=== PATIENT | female | born 1935 | race Caucasian/White ===

== ENCOUNTER 2017-10-09 12:13 | Emergency (ER) | payer MEDICARE, OTHER ==
--- NOTE | 2017-10-09 12:45 | EDM.PDOC ---
ED HPI GENERAL MEDICAL PROBLEM - General Chief Complaint: Lower Extremity Injury/Pain Time Seen by Provider: 10/09/17 12:26 Source of Information: Reports: Patient, Family () History Limitations: Reports: No Limitations - History of Present Illness INITIAL COMMENTS - FREE TEXT/NARRATIVE: Patient arrived via ambulance shortly after falling in her kitchen. She says she just fell and wasn't feeling dizzy. She does have dizziness that she treats with meclizine. No LOC. Very painful right hip and also right elbow. She was given Dilaudid 0.5mg (x2) in ambulance as well as Versed 0.5mg. History of stroke about 3 years ago and on Plavix. Pt denies history of LA, stents or other cardiac problems except her cholesterol and hypertension. She didn't take her medications this morning and blood pressure is high. Right Hip Pain Score (Numeric/FACES): 6 - Related Data Allergies Allergy/AdvReac Type Severity Reaction Status Date / Time No Known Drug Allergies Allergy Cannot Verified 10/09/17 12:33 Remember Home Meds: Home Meds ALPRAZolam [Xanax] 0.5 mg PO BEDTIME 07/17/14 [History] Atenolol 50 mg PO BID 07/17/14 [History] Hydrochlorothiazide 25 mg PO DAILY 07/17/14 [History] Meclizine HCl 50 mg PO DAILY 07/17/14 [History] Potassium Chloride [Klor-Con 10] 20 meq PO DAILY 07/17/14 [History] Clopidogrel [Plavix] 75 mg PO DAILY 10/09/17 [History] FLUoxetine HCl [Prozac] 20 mg PO DAILY 10/09/17 [History] Levothyroxine [Synthroid] 88 mcg PO ACBREAKFAST 10/09/17 [History] Losartan [Cozaar] 100 mg PO DAILY 10/09/17 [History] atorvaSTATin [Lipitor] 40 mg PO DAILY 10/09/17 [History] Social & Family History - Tobacco Use Smoking Status *Q: Former Smoker Years of Tobacco use: 2 Used Tobacco, but Quit: Yes Month/Year Tobacco Last Used: Jul Second Hand Smoke Exposure: No - Alcohol Use Days Per Week of Alcohol Use: 7 Number of Drinks Per Day: 2 Total Drinks Per Week: 14 - Recreational Drug Use Recreational Drug Use: No Review of Systems - Review of Systems Review Of Systems: See Below Constitutional: Denies: Chills, Diaphoresis, Fever, Weakness Eyes: Denies: Vision Change Ears: Denies: Dizziness, Pain Nose: Denies: Epistaxis Mouth/Throat: Denies: Hoarse Voice, Painful Swallowing Respiratory: Denies: Shortness of Breath, Cough Cardiovascular: Denies: Chest Pain, Syncope GI/Abdominal: Denies: Abdominal Pain, Diarrhea, Vomiting Genitourinary: Denies: Dysuria, Incontinence, Painful Urination Musculoskeletal: Reports: Leg Pain. Denies: Neck Pain, Shoulder Pain, Arm Pain , Back Pain, Hand Pain, Foot Pain Skin: Denies: Cyanosis, Jaundice, Mottled, Pallor, Diaphoresis Neurological: Denies: Confusion, Dizziness, Headache, Numbness, Seizure, Syncope , Trouble Speaking Psychiatric: Denies: Confusion ED EXAM, GENERAL - Physical Exam Exam: See Below Exam Limited By: No Limitations General Appearance: Alert, WD/WN, Mild Distress (due to hip pain) Eye Exam: Bilateral Eye: EOMI, Normal Inspection, PERRL Ears: Normal External Exam, Hearing Grossly Normal Nose: Normal Inspection, No Blood Throat/Mouth: Normal Inspection, Normal Lips, Normal Voice, No Airway Compromise Head: Atraumatic, Normocephalic Neck: Normal Inspection, Supple, Full Range of Motion Respiratory/Chest: No Respiratory Distress, Lungs Clear, Normal Breath Sounds, No Accessory Muscle Use Cardiovascular: Regular Rate, Rhythm, Systolic Murmur GI/Abdominal: Normal Bowel Sounds, Soft, Non-Tender, No Organomegaly, No Distention Back Exam: No: CVA Tenderness (L), CVA Tenderness (R) Extremities: Leg Pain (right leg is moderately shortened and externally rotated with pain at the hip. Other extremities have full pain-free ROM with posterior contusion and hematoma of right elbow but otherwise no evidence of injury. Symmetric dorsiflexion/plantar flexion intact. Distal CMS intact.) Neurological: Alert, Oriented, Normal Cognition, No Motor/Sensory Deficits Psychiatric: Normal Affect, Normal Mood Skin Exam: Warm, Dry, Intact, Normal Color, No Rash Course - Vital Signs Last Recorded V/S: Last Vital Signs Temp 97.7 F 10/09/17 12:28 Pulse 62 10/09/17 13:20 Resp 18 10/09/17 12:28 BP 236/104 H 10/09/17 13:20 Pulse Ox 86 L 10/09/17 12:28 - Orders/Labs/Meds Orders: Active Orders 24 hr Category Date Time Status Chest 1V Frontal [CR] Stat Exams 10/09/17 12:31 Ordered Elbow Min 3V Rt [CR] Stat Exams 10/09/17 12:31 Ordered Hip Min 2V or 3V w Pelvis Rt [CR] Stat Exams 10/09/17 12:31 Ordered Labs: Laboratory Tests 10/09/17 10/09/17 10/09/17 Range/Units 13:05 13:05 13:05 WBC 5.8 (5.0-10.0) 10^3/uL RBC 4.18 (3.80-5.50) 10^6/uL Hgb 12.4 D (12.0-16.0) g/dL Hct 37.9 (37.0-47.0) % MCV 90.6 D (82.0-92.0) fL MCH 29.6 (27.0-31.0) pg MCHC 32.6 (32.0-36.0) g/dL RDW 13.1 (11.5-14.5) % Plt Count 189 (150-300) 10^3/uL MPV 7.1 L (7.4-10.4) fL Neut % (Auto) 73.4 H (50.0-70.0) % Lymph % (Auto) 17.2 L (20.0-40.0) % [place] % (Auto) 6.1 (2.0-8.0) % Eos % (Auto) 2.9 (1.0-3.0) % Baso % (Auto) 0.4 (0.0-1.0) % Neut # (Auto) 4.2 (2.5-7.0) 10^3/uL Lymph # (Auto) 1.0 (1.0-4.0) 10^3/uL [place] # (Auto) 0.4 (0.1-0.8) 10^3/uL Eos # (Auto) 0.2 (0.1-0.3) 10^3/uL Baso # (Auto) 0.0 (0.0-0.1) 10^3/uL PT 9.9 (8.9-11.4) SEC INR 1.0 (0.9-1.1) Sodium 139 (136-145) mmol/L Potassium 3.3 (3.3-5.3) mmol/L Chloride 103 (98-115) mmol/L Carbon Dioxide 25.7 (21.0-32.0) mmol/L BUN 32 H (6-25) mg/dL Creatinine 1.52 H (0.51-1.17) mg/dL Est Cr Clr Drug Dosing 23.35 mL/min Estimated GFR (MDRD) 33 mL/min Glucose 131 H (70-110) mg/dL Calcium 8.7 (8.7-10.3) mg/dL Meds: Medications Discontinued Medications Generic Name Dose Route Start Last Admin Trade Name Freq PRN Reason Stop Dose Admin Hydromorphone HCl 0.5 mg 10/09/17 13:12 10/09/17 13:19 Dilaudid IVPUSH 10/09/17 13:13 0.5 mg ONETIME ONE Administration Labetalol HCl 20 mg 10/09/17 12:51 10/09/17 12:57 Normodyne IVPUSH 10/09/17 12:52 20 mg ONETIME ONE Administration Protocol Labetalol HCl 40 mg 10/09/17 13:15 10/09/17 13:20 Normodyne IVPUSH 10/09/17 13:16 40 mg ONETIME ONE Administration Protocol - Re-Assessments/Exams Free Text/Narrative Re-Assessment/Exam: 10/09/17 13:25 Xrays confirm displaced intertrochanteric right hip fracture. No evidence of pelvic or elbow fracture. Blood pressure is high and we have given a dose of Labetalol 20mg followed by a second dose of 40mg. Discussed findings with patient and her . They wish to go to [facility] in [place]. Discussed case with Srikanth Cannon PA-C who accepted, on behalf of Dr. Guthrie (ortho), for transfer and treatment. Patient's pain level has improved some with the two doses of Dilaudid 0.5 mg given en route and wants another dose. Another dose of Dilaudid 0.5 mg is given just prior to departure in ambulance. Patient has been stable throughout ER course. Departure - Departure Time of Disposition: 13:24 Disposition: DC/Tfer to Acute Hospital 02 Condition: Good Clinical Impression: Elevated blood pressure reading in office with diagnosis of hypertension Intertrochanteric fracture of right hip Qualifiers: Encounter type: initial encounter Fracture type: closed Fracture alignment: displaced Qualified Code(s): S72.141A - Displaced intertrochanteric fracture of right femur, initial encounter for closed fracture Contusion of right elbow Qualifiers: Encounter type: initial encounter Qualified Code(s): S50.01XA - Contusion of right elbow, initial encounter - Discharge Information Referrals: Cristian Milton MD [Primary Care Provider] - Forms: ED Department Discharge - My Orders Last 24 Hours: My Active Orders 10/09/17 12:31 Chest 1V Frontal [CR] Stat Elbow Min 3V Rt [CR] Stat Hip Min 2V or 3V w Pelvis Rt [CR] Stat - Assessment/Plan Last 24 Hours: My Active Orders 10/09/17 12:31 Chest 1V Frontal [CR] Stat Elbow Min 3V Rt [CR] Stat Hip Min 2V or 3V w Pelvis Rt [CR] Stat
[2017-10-09] MEDS ORDERED: Labetalol 100 MG/20 ML MDV IVPUSH ONE ×2 (12:51→13:15)
[2017-10-09] MEDS ORDERED: HYDROmorphone 1 MG/ML Syringe IVPUSH ONE (13:12)
[2017-10-09 13:29] VITALS: BP 236/104
== END 2017-10-09 13:30 ==
LOC: KA.ED 12:13
DX: S72.141A Displaced intertrochanteric fracture of right femur, initial encounter for closed fracture (principal); S50.01XA Contusion of right elbow, initial encounter; I10 Essential (primary) hypertension; E78.00 Pure hypercholesterolemia, unspecified; Z79.899 Other long term (current) drug therapy; Z87.891 Personal history of nicotine dependence; W19.XXXA Unspecified fall, initial encounter; Y92.000 Kitchen of unspecified non-institutional (private) residence as the place of occurrence of the external cause
CPT/HCPCS: 36415; 71045; 73080-RT; 80048; 85025; 85610; 96374; 96375; 99285; J1170

== ENCOUNTER 2017-10-13 09:40 | Inpatient (IN) | payer MEDICARE, OTHER ==
[2017-10-13] MEDS ORDERED: Ondansetron 4 MG Tab.DIS PO PRN (16:01)
[2017-10-13] MEDS ORDERED: Meclizine 25 MG Tab PO PRN (16:02)
[2017-10-13] MEDS: hydrALAZINE 50 MG Tab PO SCH (17:48)
[2017-10-13] MEDS: Apixaban 5 MG Tab PO SCH (21:01)
[2017-10-13] MEDS: ALPRAZolam 0.25 MG Tab PO PRN (21:04)
[2017-10-13] MEDS: Atenolol 25 MG Tab PO SCH (21:05)
[2017-10-13] MEDS ORDERED: FLUoxetine 20 MG Cap PO SCH (21:15)
[2017-10-13] MEDS: FLUoxetine 10 MG Cap PO SCH (22:23)
[2017-10-14] MEDS: Levothyroxine 88 MCG Tab PO SCH (08:32)
[2017-10-14] MEDS: hydrALAZINE 50 MG Tab PO SCH ×3 (08:33→17:56)
[2017-10-14] MEDS: atorvaSTATin 40 MG Tab PO SCH (08:33)
[2017-10-14] MEDS: amLODIPine 5 MG Tab PO SCH (08:34)
[2017-10-14] MEDS: Atenolol 25 MG Tab PO SCH ×2 (08:35→20:50)
[2017-10-14] MEDS: FLUoxetine 10 MG Cap PO SCH (08:39)
[2017-10-14] MEDS: Apixaban 5 MG Tab PO SCH ×2 (08:57→20:49)
[2017-10-14] MEDS ORDERED: Clopidogrel 75 MG Tab PO SCH (09:00)
--- NOTE | 2017-10-14 10:25 | PCM.HP ---
H&P History of Present Illness - General Date of Service: 10/14/17 Admit Problem/Dx: Admission Diagnosis/Problem Admission Diagnosis/Problem Hip fracture requiring operative repair Source of Information: Patient, Old Records, RN - History of Present Illness Initial Comments - Free Text/Narative: 82-year-old female who sustained a right hip fracture after subsequent fall at home was admitted and discussed long term care for physical therapy and rehabilitation. She was sent to us from [place], [place]. Right Hip Pain Score (Numeric/FACES): 6 - Related Data Allergies/Adverse Reactions: Allergies Allergy/AdvReac Type Severity Reaction Status Date / Time No Known Drug Allergies Allergy Cannot Verified 10/09/17 12:33 Remember Home Medications: Home Meds Atenolol 50 mg PO BID 07/17/14 [History] Meclizine HCl 25 mg PO BID PRN 07/17/14 [History] Clopidogrel [Plavix] 75 mg PO DAILY 10/09/17 [History] Levothyroxine [Synthroid] 88 mcg PO ACBREAKFAST 10/09/17 [History] atorvaSTATin [Lipitor] 40 mg PO DAILY 10/09/17 [History] ALPRAZolam [Xanax] 0.5 mg PO 2100 PRN 10/13/17 [History] Acetaminophen [Acetaminophen Extra Strength] 1,000 mg PO TID PRN 10/13/17 [ History] Apixaban [Eliquis] 2.5 mg PO BID 10/13/17 [History] FLUoxetine HCl [Prozac] 20 mg PO DAILY 10/13/17 [History] amLODIPine Besylate [Amlodipine Besylate] 5 mg PO DAILY 10/13/17 [History] hydrALAZINE [Apresoline] 100 mg PO TIDMEALS 10/13/17 [History] oxyCODONE 5 mg PO Q4H PRN 10/13/17 [History] Past Medical History HEENT History: Reports: Hard of Hearing Cardiovascular History: Reports: Heart Murmur, Hypertension Gastrointestinal History: Reports: Chronic Constipation, Hemorrhoids BENDING ROLL HAND History: Reports: , Spontaneous Other OB/BYN History: tubal ligation, hysterectomy Musculoskeletal History: Reports: Fracture, Osteoarthritis Other Musculoskeletal History: ankle fx; bilateral knee replacements; broken right hip Neurological History: Reports: CVA, Vertigo Psychiatric History: Reports: Anxiety Other Psychiatric History: forgetfulness Endocrine/Metabolic History: Reports: Hypothyroidism, Osteopenia Hematologic History: Reports: None - Infectious Disease History Infectious Disease History: Reports: Chicken Pox, Influenza, Measles, Mumps - Past Surgical History Other HEENT Surgeries/Procedures: menieres syndrome Musculoskeletal Surgical History: Reports: Knee Replacement, ORIF Social & Family History - Family History HEENT: Reports: None Cardiac: Reports: Heart Failure, Other (See Below) (Mother heart disease, also brother with heart disease) Respiratory: Reports: None GI: Reports: None : Reports: None OBGYN: Reports: None Musculoskeletal: Reports: None Psychiatric: Reports: None Endocrine/Metabolic: Reports: Diabetes, type II (Paternal grandmother diabetes paternal grandfather heart disease,) Hematologic: Reports: None Immunologic: Reports: None Dermatologic: Reports: None Oncologic: Reports: None - Tobacco Use Smoking Status *Q: Former Smoker Years of Tobacco use: 3 Packs/Tins Daily: 0.5 Used Tobacco, but Quit: Yes Month/Year Tobacco Last Used: JUL Tobacco Use Comment: Quit yrs ago Second Hand Smoke Exposure: No - Caffeine Use Caffeine Use: Reports: Coffee, Soda, Tea - Alcohol Use Days Per Week of Alcohol Use: 3 Number of Drinks Per Day: 2 Total Drinks Per Week: 6 Date of Last Drink: 10/06/17 - Recreational Drug Use Recreational Drug Use: No H&P Review of Systems - Review of Systems: Review Of Systems: See Below General: Reports: Weakness. Denies: Night Sweats, Decreased Appetite, Weight Gain HEENT: Reports: No Symptoms Pulmonary: Reports: No Symptoms Cardiovascular: Reports: No Symptoms Gastrointestinal: Reports: Constipation Genitourinary: Reports: No Symptoms Musculoskeletal: Reports: Leg Pain (Right hip pain), Joint Swelling (Right elbow since fall). Denies: Shoulder Pain, Foot Pain Skin: Reports: Bruising (Significant bruising right elbow, surgical site bruising, slight blood oozing through katherin), Erythema, Wound (Katherin intact) . Denies: Rash Psychiatric: Reports: No Symptoms Neurological: Reports: Difficulty Walking. Denies: Seizure, Syncope, Tingling Hematologic/Lymphatic: Reports: Easy Bleeding, Easy Bruising (Had been on ASA and Plavix now on Eliquis postoperatively) Exam - Exam Exam: See Below - Vital Signs Vital Signs: Last Vital Signs Temp 98.0 F 10/14/17 07:00 Pulse 68 10/14/17 08:35 Resp 18 10/14/17 07:00 BP 168/79 H 10/14/17 08:35 Pulse Ox 95 10/14/17 07:45 Weight: 154 lb 14.4 oz - Exam Quality Assessment: DVT Prophylaxis (Factor X A inhibitor) General: Alert, Oriented, 4 HEENT: Conjunctiva Clear, EACs Clear, EOMI, Hearing Intact, Mucosa Moist & [place] , Nares Patent (Epistaxis lightly this morning now stopped), Normal Nasal Septum , Posterior Pharynx Clear, TMs Clear, PERRLA Neck: Supple, Trachea Midline, 2 Lungs: Clear to Auscultation, Normal Respiratory Effort Cardiovascular: Regular Rate, Regular Rhythm, Systolic Murmur (Significant murmur 10/09) GI/Abdominal Exam: Soft. No: Distended Back Exam: No: CVA Tenderness (L), CVA Tenderness (R) Extremities: No Pedal Edema Skin: Wound, Incision (Some oozing blood from surgical site) Neurological: Cranial Nerves Intact, Strength Equal Bilateral, Normal Speech Neuro Extensive - Mental Status: Alert, Oriented x3, Normal Mood/Affect, Normal Cognition Neuro Extensive - Motor, Sensory, Reflexes: CN II-XII Intact, Normal Gait, Normal Reflexes Psychiatric: Alert, Normal Affect, Normal Mood - Patient Data Lab Results Last 24 hrs: Laboratory Results - last 24 hr 10/14/17 Range/Units 07:30 Sodium 141 (136-145) mmol/L Potassium 3.7 (3.3-5.3) mmol/L Chloride 106 (98-115) mmol/L Carbon Dioxide 23.1 (21.0-32.0) mmol/L BUN 59 H* D (6-25) mg/dL Creatinine 2.26 H (0.51-1.17) mg/dL Est Cr Clr Drug Dosing 14.26 mL/min Estimated GFR (MDRD) 21 mL/min Glucose 108 (70-110) mg/dL Calcium 8.3 L (8.7-10.3) mg/dL Result Diagrams: 10/18/17 06:23 10/18/17 06:23 Problem List Initiated/Reviewed/Updated: Yes Orders Last 24hrs: Active Orders 24 hr Category Date Time Status Patient Status [ADT] Routine ADT 10/13/17 11:28 Ordered Blood Glucose Check, Bedside [RC] QIDACANDBED Care 10/13/17 11:28 Inactive Communication Order [RC] DAILY Care 10/13/17 11:53 Active Communication Order [RC] DAILY Care 10/13/17 12:05 Active Communication Order [RC] DAILY Care 10/13/17 12:13 Active Dressing Change [Wound Care] [RC] DAILY Care 10/13/17 11:58 Active Intake and Output [RC] Q8HR Care 10/13/17 11:28 Active RT Incentive Spirometry [RC] .PRN Care 10/13/17 12:12 Active Up With Assistance [RC] DAILY Care 10/13/17 11:28 Active Up to Chair [RC] DAILY Care 10/13/17 11:28 Active Consult to [employer] Supervisor [CONS] Routine Cons 10/13/17 11:28 Active PT Evaluation and Treatment [CONS] Routine Cons 10/13/17 11:28 Active Cardiac [Heart Healthy Diet] [DIET] Diet 10/13/17 Dinner Active ALPRAZolam [Xanax] Med 10/13/17 20:40 Active 0.5 mg PO BEDTIME PRN Acetaminophen [Tylenol Extra Strength] Med 10/13/17 16:02 Active 1,000 mg PO TID PRN Apixaban [Eliquis] Med 10/13/17 21:00 Active 2.5 mg PO BID Atenolol [Tenormin] Med 10/13/17 21:00 Active 50 mg PO BID Clopidogrel [Plavix] Med 10/14/17 09:00 Active 75 mg PO DAILY FLUoxetine [PROzac] Med 10/13/17 21:30 Active 20 mg PO DAILY Levothyroxine [Synthroid] Med 10/14/17 07:30 Active 88 mcg PO ACBREAKFAST Meclizine [Antivert] Med 10/13/17 16:02 Active 25 mg PO BID PRN Ondansetron [Zofran ODT] Med 10/13/17 16:01 Active 4 mg PO Q6H PRN amLODIPine [Norvasc] Med 10/14/17 09:00 Active 5 mg PO DAILY atorvaSTATin [Lipitor] Med 10/14/17 09:00 Active 40 mg PO DAILY hydrALAZINE [Apresoline] Med 10/13/17 18:00 Active 100 mg PO TIDMEALS oxyCODONE Med 10/13/17 16:02 Active 5 mg PO Q4H PRN Ice Therapy [OM.PC] Routine Oth 10/13/17 11:52 Ordered TENISHA Hose [Antiembolic Hose] [OM.PC] Routine Oth 10/13/17 11:48 Ordered Resuscitation Status Routine Resus Stat 10/13/17 11:28 Ordered Medication Orders Acetaminophen (Tylenol Extra Strength) 1,000 mg PO TID PRN PRN Reason: Pain Alprazolam (Xanax) 0.5 mg PO BEDTIME PRN PRN Reason: ANXIETY Last Admin: 10/13/17 21:04 Dose: 0.5 mg Amlodipine Besylate (Norvasc) 5 mg PO DAILY [facility] Last Admin: 10/14/17 08:34 Dose: 5 mg Apixaban (Eliquis) 2.5 mg PO BID [facility] Stop: 10/23/17 21:01 Last Admin: 10/14/17 08:57 Dose: 2.5 mg Admin: 10/13/17 21:01 Dose: 2.5 mg Atenolol (Tenormin) 50 mg PO BID [facility] Last Admin: 10/14/17 08:35 Dose: 50 mg Admin: 10/13/17 21:05 Dose: 50 mg Atorvastatin Calcium (Lipitor) 40 mg PO DAILY [facility] Last Admin: 10/14/17 08:33 Dose: 40 mg Clopidogrel Bisulfate (Plavix) 75 mg PO DAILY [facility] Last Admin: 10/14/17 10:08 Dose: Fluoxetine HCl (Prozac) 20 mg PO DAILY [facility] Last Admin: 10/14/17 08:39 Dose: 20 mg Admin: 10/13/17 22:23 Dose: 20 mg Hydralazine HCl (Apresoline) 100 mg PO TIDMEALS [facility] Last Admin: 10/14/17 08:33 Dose: 100 mg Admin: 10/13/17 17:48 Dose: 100 mg Levothyroxine Sodium (Synthroid) 88 mcg PO ACBREAKFAST [facility] Last Admin: 10/14/17 08:32 Dose: 88 mcg Meclizine HCl (Antivert) 25 mg PO BID PRN PRN Reason: Dizziness Ondansetron HCl (Zofran Odt) 4 mg PO Q6H PRN PRN Reason: Nausea/Vomiting Last Admin: 10/13/17 16:51 Dose: 4 mg Oxycodone HCl (Oxycodone) 5 mg PO Q4H PRN PRN Reason: Pain (severe 7-10) Assessment/Plan Comment:: HISTORY OF PRESENT ILLNESS 82-year-old female who sustained a right hip fracture after subsequent fall at home was admitted and discussed long term care for physical therapy and rehabilitation. She was sent to us from [facility]. Principal problem Status post closed right hip fracture, PTOT Anemia, blood loss, hemoglobin October 09 9.1, reassess Constipation, add senna S DVT , stop aspirin and Plavix, however will continue with Eliquis although slight oozing from the wound and epistaxis seems controlled will continue to monitor. Risks versus benefit. 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 For gait assistive devices, FWW CODE STATUS, full code Delirium prophylaxis, limit benzodiazepine, Rozerem and ear plugs
[2017-10-14] MEDS: ALPRAZolam 0.25 MG Tab PO PRN (20:56)
[2017-10-15] MEDS: Levothyroxine 88 MCG Tab PO SCH (07:47)
[2017-10-15] MEDS: Atenolol 25 MG Tab PO SCH ×2 (08:11→20:00)
[2017-10-15] MEDS: atorvaSTATin 40 MG Tab PO SCH (08:12)
[2017-10-15] MEDS: FLUoxetine 10 MG Cap PO SCH (08:12)
[2017-10-15] MEDS: amLODIPine 5 MG Tab PO SCH (08:12)
[2017-10-15] MEDS: Apixaban 5 MG Tab PO SCH ×2 (08:13→20:00)
[2017-10-15] MEDS: hydrALAZINE 50 MG Tab PO SCH ×3 (08:13→18:26)
[2017-10-15] MEDS: oxyCODONE 5 MG Tab PO PRN (08:22)
[2017-10-15] MEDS: ALPRAZolam 0.25 MG Tab PO SCH (20:02)
[2017-10-16] MEDS: oxyCODONE 5 MG Tab PO PRN ×2 (04:07→08:49)
[2017-10-16] MEDS: atorvaSTATin 40 MG Tab PO SCH (08:08)
[2017-10-16] MEDS: Levothyroxine 88 MCG Tab PO SCH (08:08)
[2017-10-16] MEDS: Atenolol 25 MG Tab PO SCH ×2 (08:09→21:14)
[2017-10-16] MEDS: FLUoxetine 10 MG Cap PO SCH (08:09)
[2017-10-16] MEDS: amLODIPine 5 MG Tab PO SCH (08:10)
[2017-10-16] MEDS: hydrALAZINE 50 MG Tab PO SCH ×3 (08:11→18:51)
[2017-10-16] MEDS: Apixaban 5 MG Tab PO SCH ×2 (08:13→21:16)
[2017-10-16] MEDS: ALPRAZolam 0.25 MG Tab PO SCH (21:21)
[2017-10-17] MEDS: Levothyroxine 88 MCG Tab PO SCH (06:43)
[2017-10-17] MEDS: atorvaSTATin 40 MG Tab PO SCH (08:19)
[2017-10-17] MEDS: hydrALAZINE 50 MG Tab PO SCH ×3 (08:20→18:37)
[2017-10-17] MEDS: FLUoxetine 10 MG Cap PO SCH (08:20)
[2017-10-17] MEDS: amLODIPine 5 MG Tab PO SCH (08:20)
[2017-10-17] MEDS: Apixaban 5 MG Tab PO SCH ×2 (08:20→20:40)
[2017-10-17] MEDS: Atenolol 25 MG Tab PO SCH ×2 (08:21→20:43)
--- NOTE | 2017-10-17 12:03 | PCM.PN ---
- General Info Date of Service: 10/17/17 Subjective Update: Ms. Boykin reports no new concerns today. Pain managed with current medication regimen, but aggravated by activity. Requiring quite a bit of encouragement to get up to chair and ambulation. Tolerating diet well, but poor appetite. Voiding well. BMs soft, but becoming a little more firm since requiring enema during acute hospitalization. - Patient Data Vitals - Most Recent: Last Vital Signs Temp 37.4 C 10/17/17 06:11 Pulse 76 10/17/17 08:21 Resp 18 10/17/17 06:11 BP 127/74 10/17/17 08:21 Pulse Ox 95 10/17/17 06:11 Weight - Most Recent: 70.261 kg I&O - Last 24 Hours: Intake & Output 10/16/17 10/17/17 10/17/17 22:59 06:59 14:59 Intake Total 120 100 Output Total 600 0 Balance -480 100 Lab Results Last 24 Hours: Laboratory Results - last 24 hr 10/17/17 10/17/17 Range/Units 07:10 07:10 WBC 7.6 (5.0-10.0) 10^3/uL RBC 2.77 L (3.80-5.50) 10^6/uL Hgb 8.3 L (12.0-16.0) g/dL Hct 25.5 L (37.0-47.0) % MCV 92.0 (82.0-92.0) fL MCH 29.9 (27.0-31.0) pg MCHC 32.5 (32.0-36.0) g/dL RDW 13.9 (11.5-14.5) % Plt Count 307 H (150-300) 10^3/uL MPV 6.5 L (7.4-10.4) fL Neut % (Auto) 73.2 H (50.0-70.0) % Lymph % (Auto) 12.9 L (20.0-40.0) % [place] % (Auto) 10.2 H (2.0-8.0) % Eos % (Auto) 3.1 H (1.0-3.0) % Baso % (Auto) 0.6 (0.0-1.0) % Neut # (Auto) 5.6 (2.5-7.0) 10^3/uL Lymph # (Auto) 1.0 (1.0-4.0) 10^3/uL [place] # (Auto) 0.8 (0.1-0.8) 10^3/uL Eos # (Auto) 0.2 (0.1-0.3) 10^3/uL Baso # (Auto) 0.0 (0.0-0.1) 10^3/uL Sodium 134 L (136-145) mmol/L Potassium 3.5 (3.3-5.3) mmol/L Chloride 101 (98-115) mmol/L Carbon Dioxide 24.0 (21.0-32.0) mmol/L BUN 53 H* (6-25) mg/dL Creatinine 1.93 H (0.51-1.17) mg/dL Est Cr Clr Drug Dosing 16.70 mL/min Estimated GFR (MDRD) 25 mL/min Glucose 114 H (70-110) mg/dL Calcium 8.4 L (8.7-10.3) mg/dL Total Bilirubin 0.9 (0.2-1.0) mg/dL AST 21 (15-37) U/L ALT 11 L (12-78) U/L Alkaline Phosphatase 61 (46-116) IU/L Total Protein 6.1 L (6.4-8.2) g/dL Albumin 2.55 L (3.00-4.80) g/dL [place] Results Last 24 Hours: Microbiology 10/15/17 17:15 Gram Stain - Final Wound - Hip, Right 10/15/17 17:15 Gram Stain - Final Wound - Leg, Right Med Orders - Current: Current Medications Acetaminophen (Tylenol Extra Strength) 1,000 mg PO TID PRN PRN Reason: Pain Alprazolam (Xanax) 0.5 mg PO BEDTIME ON LICENSE OF [facility] Last Admin: 10/16/17 21:21 Dose: 0.5 mg Amlodipine Besylate (Norvasc) 5 mg PO DAILY ON LICENSE OF [facility] Last Admin: 10/17/17 08:20 Dose: 5 mg Apixaban (Eliquis) 2.5 mg PO BID ON LICENSE OF [facility] Stop: 10/23/17 21:01 Last Admin: 10/17/17 08:20 Dose: 2.5 mg Atenolol (Tenormin) 50 mg PO BID ON LICENSE OF [facility] Last Admin: 10/17/17 08:21 Dose: 50 mg Atorvastatin Calcium (Lipitor) 40 mg PO DAILY ON LICENSE OF [facility] Last Admin: 10/17/17 08:19 Dose: 40 mg Calcium Citrate (Calcium Citrate + D) 2 tab PO BID ON LICENSE OF [facility] Clopidogrel Bisulfate (Plavix) 75 mg PO DAILY ON LICENSE OF [facility] Ferrous Sulfate (Ferrous Sulfate) 325 mg PO WITHBREAKFAST ON LICENSE OF [facility] Fluoxetine HCl (Prozac) 20 mg PO DAILY ON LICENSE OF [facility] Last Admin: 10/17/17 08:20 Dose: 20 mg Hydralazine HCl (Apresoline) 100 mg PO TIDMEALS ON LICENSE OF [facility] Last Admin: 10/17/17 08:20 Dose: 100 mg Levothyroxine Sodium (Synthroid) 88 mcg PO ACBREAKFAST ON LICENSE OF [facility] Last Admin: 10/17/17 06:43 Dose: 88 mcg Meclizine HCl (Antivert) 25 mg PO BID PRN PRN Reason: Dizziness Ondansetron HCl (Zofran Odt) 4 mg PO Q6H PRN PRN Reason: Nausea/Vomiting Last Admin: 10/13/17 16:51 Dose: 4 mg Oxycodone HCl (Oxycodone) 5 mg PO Q4H PRN PRN Reason: Pain (severe 7-10) Last Admin: 10/16/17 08:49 Dose: 5 mg Ramelteon (Rozerem) 8 mg PO BEDTIME PRN PRN Reason: Delirium prophylaxis Senna/Docusate Sodium (Senna Plus) 1 tab PO BEDTIME ON LICENSE OF [facility] Last Admin: 10/16/17 21:15 Dose: 1 tab Discontinued Medications Alprazolam (Xanax) 0.5 mg PO BEDTIME PRN PRN Reason: ANXIETY Last Admin: 10/14/17 20:56 Dose: 0.5 mg Clopidogrel Bisulfate (Plavix) 75 mg PO DAILY ON LICENSE OF [facility] Last Admin: 10/14/17 10:08 Dose: Not Given Fluoxetine HCl (Prozac) 20 mg PO DAILY ON LICENSE OF [facility] Last Admin: 10/14/17 01:13 Dose: Not Given - Exam Physical Findings Comments:: GENERAL: Well-appearing elderly female sitting in bedside chair in no acute distress. HEENT: Normocephalic, atraumatic. Conjunctiva clear. Nares patent without discharge. Mucous membranes moist. NECK: Supple, no masses. CV: Regular rate and rhythm. 2+ radial and pedal pulses. PULMONARY: Normal effort. ABDOMEN: Soft, nontender, nondistended. EXTREMITIES/MSK/DERMATOLOGIC: R lateral hip and thigh with dressing in place without surrounding erythema. R elbow with extensive ecchymosis. NEUROLOGICAL: No obvious deficits. DERMATOLOGIC: No rashes or suspicious lesions in exposed areas. PSYCHIATRIC: Alert, interactive, appropriate affect. - Problem List Review Problem List Initiated/Reviewed/Updated: Yes - My Orders Last 24 Hours: My Active Orders 10/17/17 21:00 Calcium Citrate/Vitamin D3 [Calcium Citrate + D] 2 tab PO BID 10/18/17 05:11 BASIC METABOLIC PANEL,BMP [CHEM] AM CBC WITH AUTO DIFF [HEME] AM 10/18/17 08:00 Ferrous Sulfate 325 mg PO WITHBREAKFAST 10/24/17 09:00 Clopidogrel [Plavix] 75 mg PO DAILY - Plan Plan:: HPI Summary: 82-year-old female who sustained a right hip fracture after subsequent fall at home was admitted and discussed fdc care for physical therapy and rehabilitation. [facility] Principal problems: # Debility # Status post closed right hip fragility fracture # Osteopenia: Last DEXA 2012. # Anemia, blood loss # Acute kidney injury superimposed on CKD, stage 3: Baseline Cr 1.5. # Constipation Ongoing debility and need for rehabilitation. Further mild decrease in H/H, but no ongoing evidence of bleeding since resolution of wound oozing and epistaxis with holding of Plavix and ASA while on Eliquis. Improving YAIR. - Continue PT - Continue oxycodone and Tylenol for pain - Continue Eliquis for DVT ppx - Start Fe supplementation - Start Ca/D supplementation - Continue Senna and Miralax for constipation - Continue delirium ppx with ramelteon and ear plugs - Recheck CBC and BMP in 3 days - Plan for outpatient initiation of Forteo in the setting of fragility fracture Chronic, stable problems: # History of CVA, 2013: Holding Plavix until completed with factor Xa inhibitor. # Carotid artery stenosis # HTN: Amlodipine, atenolol, hydralazine. # Hypothyroidism: Levothyroxine. # HLD: Statin. # Anxiety: Fluoxetine, alprazolam. # Chronic vertigo: Meclizine prn. Hospitalization details: # Code status: FULL. # Emergency contact: . # Disposition: Continue on swing bed status. Anticipate discharge to home when ambulatory status improves.
[2017-10-17] MEDS ORDERED: Polyethylene Glycol 3350 Powder 17 GM Packet PO PRN (12:11)
[2017-10-17] MEDS: Calcium Citrate/Vitamin D3 315 MG-250 Unit Tab PO SCH (20:40)
[2017-10-17] MEDS: ALPRAZolam 0.25 MG Tab PO SCH (20:41)
[2017-10-18] MEDS: Levothyroxine 88 MCG Tab PO SCH (07:50)
[2017-10-18] MEDS: hydrALAZINE 50 MG Tab PO SCH ×3 (07:50→18:35)
[2017-10-18] MEDS: Ferrous Sulfate 325 MG Tab PO SCH (07:54)
[2017-10-18] MEDS: Calcium Citrate/Vitamin D3 315 MG-250 Unit Tab PO SCH ×2 (08:00→21:35)
[2017-10-18] MEDS: atorvaSTATin 40 MG Tab PO SCH (08:01)
[2017-10-18] MEDS: amLODIPine 5 MG Tab PO SCH (08:01)
[2017-10-18] MEDS: FLUoxetine 10 MG Cap PO SCH (08:01)
[2017-10-18] MEDS: Apixaban 5 MG Tab PO SCH ×2 (08:01→21:28)
[2017-10-18] MEDS: Atenolol 25 MG Tab PO SCH ×2 (08:08→21:29)
[2017-10-18] MEDS: ALPRAZolam 0.25 MG Tab PO SCH (21:29)
[2017-10-19] MEDS: Levothyroxine 88 MCG Tab PO SCH (07:43)
[2017-10-19] MEDS: Calcium Citrate/Vitamin D3 315 MG-250 Unit Tab PO SCH ×2 (08:22→20:41)
[2017-10-19] MEDS: Atenolol 25 MG Tab PO SCH ×2 (08:23→20:41)
[2017-10-19] MEDS: hydrALAZINE 50 MG Tab PO SCH ×3 (08:23→17:47)
[2017-10-19] MEDS: Ferrous Sulfate 325 MG Tab PO SCH (08:23)
[2017-10-19] MEDS: FLUoxetine 10 MG Cap PO SCH (08:23)
[2017-10-19] MEDS: amLODIPine 5 MG Tab PO SCH (08:23)
[2017-10-19] MEDS: oxyCODONE 5 MG Tab PO PRN (08:24)
[2017-10-19] MEDS: atorvaSTATin 40 MG Tab PO SCH (08:24)
[2017-10-19] MEDS: Apixaban 5 MG Tab PO SCH ×2 (08:24→20:41)
[2017-10-19] MEDS: ALPRAZolam 0.25 MG Tab PO SCH (20:42)
[2017-10-20] MEDS: Levothyroxine 88 MCG Tab PO SCH (07:30)
[2017-10-20] MEDS: hydrALAZINE 50 MG Tab PO SCH ×3 (07:30→17:54)
[2017-10-20] MEDS: Ferrous Sulfate 325 MG Tab PO SCH (08:08)
[2017-10-20] MEDS: Apixaban 5 MG Tab PO SCH ×2 (08:08→20:46)
[2017-10-20] MEDS: atorvaSTATin 40 MG Tab PO SCH (08:09)
[2017-10-20] MEDS: amLODIPine 5 MG Tab PO SCH (08:09)
[2017-10-20] MEDS: FLUoxetine 10 MG Cap PO SCH (08:09)
[2017-10-20] MEDS: Atenolol 25 MG Tab PO SCH ×2 (08:10→20:48)
[2017-10-20] MEDS: Calcium Citrate/Vitamin D3 315 MG-250 Unit Tab PO SCH ×2 (08:35→20:46)
[2017-10-20] MEDS: oxyCODONE 5 MG Tab PO PRN (09:40)
[2017-10-20] MEDS: ALPRAZolam 0.25 MG Tab PO SCH (20:47)
[2017-10-21] MEDS: Levothyroxine 88 MCG Tab PO SCH (07:40)
[2017-10-21] MEDS: oxyCODONE 5 MG Tab PO PRN (08:35)
[2017-10-21] MEDS: Atenolol 25 MG Tab PO SCH ×2 (08:36→20:59)
[2017-10-21] MEDS: amLODIPine 5 MG Tab PO SCH (08:37)
[2017-10-21] MEDS: FLUoxetine 10 MG Cap PO SCH (08:37)
[2017-10-21] MEDS: atorvaSTATin 40 MG Tab PO SCH (08:38)
[2017-10-21] MEDS: Apixaban 5 MG Tab PO SCH ×2 (08:38→20:58)
[2017-10-21] MEDS: Ferrous Sulfate 325 MG Tab PO SCH (08:38)
[2017-10-21] MEDS: Calcium Citrate/Vitamin D3 315 MG-250 Unit Tab PO SCH ×2 (08:38→20:58)
[2017-10-21] MEDS: hydrALAZINE 50 MG Tab PO SCH ×3 (08:38→18:18)
[2017-10-21] MEDS: ALPRAZolam 0.25 MG Tab PO SCH (20:59)
[2017-10-22] MEDS: Levothyroxine 88 MCG Tab PO SCH (07:28)
[2017-10-22] MEDS: oxyCODONE 5 MG Tab PO PRN (08:29)
[2017-10-22] MEDS: FLUoxetine 10 MG Cap PO SCH (08:29)
[2017-10-22] MEDS: Apixaban 5 MG Tab PO SCH ×2 (08:31→20:06)
[2017-10-22] MEDS: Ferrous Sulfate 325 MG Tab PO SCH (08:31)
[2017-10-22] MEDS: Atenolol 25 MG Tab PO SCH ×2 (08:32→20:07)
[2017-10-22] MEDS: Calcium Citrate/Vitamin D3 315 MG-250 Unit Tab PO SCH ×2 (08:32→20:06)
[2017-10-22] MEDS: hydrALAZINE 50 MG Tab PO SCH ×3 (08:34→18:46)
[2017-10-22] MEDS: atorvaSTATin 40 MG Tab PO SCH (08:35)
[2017-10-22] MEDS: amLODIPine 5 MG Tab PO SCH (08:36)
[2017-10-22] MEDS: Losartan 50 MG Tab PO SCH (08:41)
[2017-10-22] MEDS: ALPRAZolam 0.25 MG Tab PO SCH (20:12)
[2017-10-23] MEDS: Levothyroxine 88 MCG Tab PO SCH (07:42)
[2017-10-23] MEDS: Ferrous Sulfate 325 MG Tab PO SCH (08:41)
[2017-10-23] MEDS: FLUoxetine 10 MG Cap PO SCH (08:42)
[2017-10-23] MEDS: Calcium Citrate/Vitamin D3 315 MG-250 Unit Tab PO SCH ×2 (08:42→21:29)
[2017-10-23] MEDS: Atenolol 25 MG Tab PO SCH ×2 (08:43→21:32)
[2017-10-23] MEDS: Apixaban 5 MG Tab PO SCH ×2 (08:44→21:30)
[2017-10-23] MEDS: amLODIPine 5 MG Tab PO SCH (08:45)
[2017-10-23] MEDS: atorvaSTATin 40 MG Tab PO SCH (08:46)
[2017-10-23] MEDS: Losartan 50 MG Tab PO SCH (08:46)
[2017-10-23] MEDS: oxyCODONE 5 MG Tab PO PRN (08:59)
--- NOTE | 2017-10-23 09:52 | PCM.PN ---
- General Info Date of Service: 10/23/17 Subjective Update: Ms. Boykin reports no concerns today. Progressing with physical therapy. Pain managed with current medication regimen. Appetite improving. Stooling and voiding well. No nursing concerns. - Patient Data Vitals - Most Recent: Last Vital Signs Temp 36.6 C 10/23/17 06:15 Pulse 62 10/23/17 08:43 Resp 14 10/23/17 06:15 BP 150/83 H 10/23/17 08:46 Pulse Ox 96 10/23/17 08:20 Weight - Most Recent: 70.76 kg I&O - Last 24 Hours: Intake & Output 10/22/17 10/23/17 10/23/17 22:59 06:59 14:59 Intake Total 200 0 Balance 200 0 Med Orders - Current: Current Medications Acetaminophen (Tylenol Extra Strength) 1,000 mg PO TID PRN PRN Reason: Pain Alprazolam (Xanax) 0.5 mg PO BEDTIME [facility] Last Admin: 10/22/17 20:12 Dose: 0.5 mg Amlodipine Besylate (Norvasc) 5 mg PO DAILY [facility] Last Admin: 10/23/17 08:45 Dose: 5 mg Apixaban (Eliquis) 2.5 mg PO BID [facility] Stop: 10/23/17 21:01 Last Admin: 10/23/17 08:44 Dose: 2.5 mg Atenolol (Tenormin) 50 mg PO BID [facility] Last Admin: 10/23/17 08:43 Dose: 50 mg Atorvastatin Calcium (Lipitor) 40 mg PO DAILY [facility] Last Admin: 10/23/17 08:46 Dose: 40 mg Calcium Citrate (Calcium Citrate + D) 2 tab PO BID [facility] Last Admin: 10/23/17 08:42 Dose: 2 tab Clopidogrel Bisulfate (Plavix) 75 mg PO DAILY [facility] Ferrous Sulfate (Ferrous Sulfate) 325 mg PO WITHBREAKFAST [facility] Last Admin: 10/23/17 08:41 Dose: 325 mg Fluoxetine HCl (Prozac) 20 mg PO DAILY [facility] Last Admin: 10/23/17 08:42 Dose: 20 mg Levothyroxine Sodium (Synthroid) 88 mcg PO ACBREAKFAST [facility] Last Admin: 10/23/17 07:42 Dose: 88 mcg Losartan Potassium (Cozaar) 50 mg PO DAILY [facility] Last Admin: 10/23/17 08:46 Dose: 50 mg Meclizine HCl (Antivert) 25 mg PO BID PRN PRN Reason: Dizziness Ondansetron HCl (Zofran Odt) 4 mg PO Q6H PRN PRN Reason: Nausea/Vomiting Last Admin: 10/13/17 16:51 Dose: 4 mg Oxycodone HCl (Oxycodone) 5 mg PO Q4H PRN PRN Reason: Pain (severe 7-10) Last Admin: 10/23/17 08:59 Dose: 5 mg Polyethylene Glycol (Miralax) 17 gm PO BEDTIME PRN PRN Reason: Constipation Ramelteon (Rozerem) 8 mg PO BEDTIME PRN PRN Reason: Delirium prophylaxis Senna/Docusate Sodium (Senna Plus) 1 tab PO BID [facility] Last Admin: 10/23/17 08:47 Dose: 1 tab Discontinued Medications Alprazolam (Xanax) 0.5 mg PO BEDTIME PRN PRN Reason: ANXIETY Last Admin: 10/14/17 20:56 Dose: 0.5 mg Clopidogrel Bisulfate (Plavix) 75 mg PO DAILY [facility] Last Admin: 10/14/17 10:08 Dose: Not Given Fluoxetine HCl (Prozac) 20 mg PO DAILY [facility] Last Admin: 10/14/17 01:13 Dose: Not Given Hydralazine HCl (Apresoline) 100 mg PO TIDMEALS [facility] Last Admin: 10/19/17 08:23 Dose: 100 mg Hydralazine HCl (Apresoline) 50 mg PO TIDMEALS [facility] Stop: 10/21/17 18:00 Last Admin: 10/21/17 18:18 Dose: 50 mg Hydralazine HCl (Apresoline) 25 mg PO TIDMEALS [facility] Stop: 10/22/17 18:01 Last Admin: 10/22/17 18:46 Dose: 25 mg Senna/Docusate Sodium (Senna Plus) 1 tab PO BEDTIME [facility] Last Admin: 10/16/17 21:15 Dose: 1 tab - Exam Physical Findings Comments:: GENERAL: Well-appearing elderly female sitting in bedside chair in no acute distress. HEENT: Normocephalic, atraumatic. Conjunctiva clear. Nares patent without discharge. Mucous membranes moist. NECK: Supple, no masses. CV: Regular rate and rhythm, 2/6 systolic murmur at base. 2+ radial and pedal pulses. PULMONARY: Normal effort. ABDOMEN: Soft, nontender, nondistended. EXTREMITIES/MSK/DERMATOLOGIC: R lateral hip and thigh with dressing in place without surrounding erythema. R elbow with ecchymosis, with interval improvement. NEUROLOGICAL: No obvious deficits. DERMATOLOGIC: No rashes or suspicious lesions in exposed areas. PSYCHIATRIC: Alert, interactive, appropriate affect. - Problem List Review Problem List Initiated/Reviewed/Updated: Yes - My Orders Last 24 Hours: My Active Orders 10/22/17 09:00 Losartan [Cozaar] 50 mg PO DAILY 10/24/17 09:00 Clopidogrel [Plavix] 75 mg PO DAILY - Plan Plan:: HPI Summary: 82-year-old female who fell at home on 10/09/17 and sustained a right hip fracture requiring operative repair at [place], [place]. She was admitted to swing bed for physical therapy and rehabilitation. Principal problems: # Debility # Status post closed right hip fragility fracture s/p operative repair # Osteopenia: Last DEXA 2012. # Anemia, blood loss # Acute kidney injury superimposed on CKD, stage 3: Baseline Cr 1.5. # Constipation # Protein calorie malnutrition Ongoing debility and need for rehabilitation. Stabilization of H/H and no ongoing evidence of bleeding since resolution of wound oozing and epistaxis with holding of Plavix and ASA while on Eliquis following a discussion of risks and benefits. Ongoing improvement in YAIR. - Continue PT - Continue oxycodone and Tylenol for pain - Continue Eliquis for DVT ppx - Continue Fe and Ca/D supplementation - Continue Senna and Miralax for constipation - Continue dietary encouragement and supplementation for malnutrition - Continue delirium ppx with ramelteon and ear plugs - Assess wound next week and remove katherin when indicated - Recheck CBC and BMP in 1 week - Plan for outpatient initiation of Forteo in the setting of fragility fracture Chronic, stable problems: # History of CVA, 2012: Holding Plavix and ASA until completed with factor Xa inhibitor. # Carotid artery stenosis # HTN: Amlodipine, atenolol, losartan (which was reinitiated and hydralazine discontinued when renal function improved). # Hypothyroidism: Levothyroxine. # HLD: Statin. # Anxiety: Fluoxetine, alprazolam. # Chronic vertigo: Meclizine prn. Hospitalization details: # Code status: FULL. # Emergency contact: . # Disposition: Continue on swing bed status. Anticipate discharge to home when functional status improves.
[2017-10-23] MEDS: ALPRAZolam 0.25 MG Tab PO SCH (21:31)
[2017-10-24] MEDS: Levothyroxine 88 MCG Tab PO SCH (07:34)
[2017-10-24] MEDS ORDERED: Levothyroxine 88 MCG Tab ONE (07:38)
[2017-10-24] MEDS: Ferrous Sulfate 325 MG Tab PO SCH (08:17)
[2017-10-24] MEDS: Calcium Citrate/Vitamin D3 315 MG-250 Unit Tab PO SCH ×2 (08:18→21:23)
[2017-10-24] MEDS: Clopidogrel 75 MG Tab PO SCH (08:19)
[2017-10-24] MEDS: atorvaSTATin 40 MG Tab PO SCH (08:19)
[2017-10-24] MEDS: FLUoxetine 10 MG Cap PO SCH (08:19)
[2017-10-24] MEDS: Losartan 50 MG Tab PO SCH (08:26)
[2017-10-24] MEDS: amLODIPine 5 MG Tab PO SCH (08:27)
[2017-10-24] MEDS: Atenolol 25 MG Tab PO SCH ×2 (08:27→21:24)
[2017-10-24] MEDS: ALPRAZolam 0.25 MG Tab PO SCH (21:26)
[2017-10-25] MEDS: Levothyroxine 88 MCG Tab PO SCH (07:08)
[2017-10-25] MEDS: FLUoxetine 10 MG Cap PO SCH (08:08)
[2017-10-25] MEDS: Ferrous Sulfate 325 MG Tab PO SCH (08:08)
[2017-10-25] MEDS: atorvaSTATin 40 MG Tab PO SCH (08:08)
[2017-10-25] MEDS: Clopidogrel 75 MG Tab PO SCH (08:08)
[2017-10-25] MEDS: Calcium Citrate/Vitamin D3 315 MG-250 Unit Tab PO SCH ×2 (08:46→21:42)
[2017-10-25] MEDS: Atenolol 25 MG Tab PO SCH ×2 (08:47→21:42)
[2017-10-25] MEDS: amLODIPine 5 MG Tab PO SCH (08:47)
[2017-10-25] MEDS: Losartan 50 MG Tab PO SCH (08:47)
[2017-10-25] MEDS: ALPRAZolam 0.25 MG Tab PO SCH (21:46)
[2017-10-26] MEDS: Levothyroxine 88 MCG Tab PO SCH (07:06)
[2017-10-26] MEDS: atorvaSTATin 40 MG Tab PO SCH (08:25)
[2017-10-26] MEDS: Ferrous Sulfate 325 MG Tab PO SCH (08:25)
[2017-10-26] MEDS: Clopidogrel 75 MG Tab PO SCH (08:25)
[2017-10-26] MEDS: FLUoxetine 10 MG Cap PO SCH (08:25)
[2017-10-26] MEDS: Atenolol 25 MG Tab PO SCH ×2 (08:26→20:59)
[2017-10-26] MEDS: oxyCODONE 5 MG Tab PO PRN (08:26)
[2017-10-26] MEDS: Losartan 50 MG Tab PO SCH (08:26)
[2017-10-26] MEDS: amLODIPine 5 MG Tab PO SCH (08:26)
[2017-10-26] MEDS: Calcium Citrate/Vitamin D3 315 MG-250 Unit Tab PO SCH ×2 (08:27→20:59)
--- NOTE | 2017-10-26 09:23 | PCM.PN ---
- General Info Date of Service: 10/26/17 Functional Status: Reports: Pain Controlled, Tolerating Diet, Ambulating, Urinating, Incentive Spirometry. Denies: New Symptoms - Review of Systems General: Denies: Fever, Weakness, Fatigue, Malaise, Chills HEENT: Reports: No Symptoms Pulmonary: Reports: No Symptoms Cardiovascular: Reports: No Symptoms Gastrointestinal: Reports: No Symptoms Genitourinary: Reports: No Symptoms Musculoskeletal: Reports: No Symptoms Skin: Reports: No Symptoms Neurological: Reports: No Symptoms Psychiatric: Reports: No Symptoms - Patient Data Vitals - Most Recent: Last Vital Signs Temp 98.3 F 10/26/17 06:54 Pulse 61 10/26/17 08:26 Resp 16 10/26/17 06:54 BP 122/67 10/26/17 08:26 Pulse Ox 95 10/26/17 06:54 Weight - Most Recent: 156 lb I&O - Last 24 Hours: Intake & Output 10/25/17 10/26/17 10/26/17 22:59 06:59 14:59 Intake Total 450 50 Balance 450 50 Med Orders - Current: Current Medications Acetaminophen (Tylenol Extra Strength) 1,000 mg PO TID PRN PRN Reason: Pain Alprazolam (Xanax) 0.5 mg PO BEDTIME [facility] Last Admin: 10/25/17 21:46 Dose: 0.5 mg Amlodipine Besylate (Norvasc) 5 mg PO DAILY [facility] Last Admin: 10/26/17 08:26 Dose: 5 mg Atenolol (Tenormin) 50 mg PO BID [facility] Last Admin: 10/26/17 08:26 Dose: 50 mg Atorvastatin Calcium (Lipitor) 40 mg PO DAILY [facility] Last Admin: 10/26/17 08:25 Dose: 40 mg Calcium Citrate (Calcium Citrate + D) 2 tab PO BID [facility] Last Admin: 10/26/17 08:27 Dose: 2 tab Clopidogrel Bisulfate (Plavix) 75 mg PO DAILY [facility] Last Admin: 10/26/17 08:25 Dose: 75 mg Ferrous Sulfate (Ferrous Sulfate) 325 mg PO WITHBREAKFAST [facility] Last Admin: 10/26/17 08:25 Dose: 325 mg Fluoxetine HCl (Prozac) 20 mg PO DAILY [facility] Last Admin: 10/26/17 08:25 Dose: 20 mg Levothyroxine Sodium (Synthroid) 88 mcg PO ACBREAKFAST [facility] Last Admin: 10/26/17 07:06 Dose: 88 mcg Losartan Potassium (Cozaar) 50 mg PO DAILY [facility] Last Admin: 10/26/17 08:26 Dose: 50 mg Meclizine HCl (Antivert) 25 mg PO BID PRN PRN Reason: Dizziness Ondansetron HCl (Zofran Odt) 4 mg PO Q6H PRN PRN Reason: Nausea/Vomiting Last Admin: 10/13/17 16:51 Dose: 4 mg Oxycodone HCl (Oxycodone) 5 mg PO Q4H PRN PRN Reason: Pain (severe 7-10) Last Admin: 10/26/17 08:26 Dose: 5 mg Polyethylene Glycol (Miralax) 17 gm PO BEDTIME PRN PRN Reason: Constipation Ramelteon (Rozerem) 8 mg PO BEDTIME PRN PRN Reason: Delirium prophylaxis Last Admin: 10/25/17 00:49 Dose: 8 mg Senna/Docusate Sodium (Senna Plus) 1 tab PO BID [facility] Last Admin: 10/26/17 08:25 Dose: 1 tab Discontinued Medications Alprazolam (Xanax) 0.5 mg PO BEDTIME PRN PRN Reason: ANXIETY Last Admin: 10/14/17 20:56 Dose: 0.5 mg Apixaban (Eliquis) 2.5 mg PO BID [facility] Stop: 10/23/17 21:01 Last Admin: 10/23/17 21:30 Dose: 2.5 mg Clopidogrel Bisulfate (Plavix) 75 mg PO DAILY [facility] Last Admin: 10/14/17 10:08 Dose: Not Given Fluoxetine HCl (Prozac) 20 mg PO DAILY [facility] Last Admin: 10/14/17 01:13 Dose: Not Given Hydralazine HCl (Apresoline) 100 mg PO TIDMEALS [facility] Last Admin: 10/19/17 08:23 Dose: 100 mg Hydralazine HCl (Apresoline) 50 mg PO TIDMEALS [facility] Stop: 10/21/17 18:00 Last Admin: 10/21/17 18:18 Dose: 50 mg Hydralazine HCl (Apresoline) 25 mg PO TIDMEALS [facility] Stop: 10/22/17 18:01 Last Admin: 10/22/17 18:46 Dose: 25 mg Levothyroxine Sodium (Synthroid) Confirm Administered Dose 88 mcg .ROUTE .STK- MED ONE Stop: 10/24/17 07:39 Last Admin: 10/24/17 07:49 Dose: Not Given Senna/Docusate Sodium (Senna Plus) 1 tab PO BEDTIME [facility] Last Admin: 10/16/17 21:15 Dose: 1 tab - Exam Quality Assessment: No: Supplemental Oxygen General: Alert, Oriented Neck: Supple Lungs: Clear to Auscultation, Normal Respiratory Effort Cardiovascular: Regular Rate, Regular Rhythm Extremities: No Pedal Edema Skin: Warm, Dry, Intact Wound/Incisions: Healing Well, No Drainage Neurological: No New Focal Deficit Psy/Mental Status: Alert, Normal Affect, Normal Mood - Problem List Review Problem List Initiated/Reviewed/Updated: Yes - Plan Plan:: HPI Summary: 82-year-old female who fell at home on 10/09/17 and sustained a right hip fracture requiring operative repair at [place], [place]. She was admitted to [facility] for physical therapy and rehabilitation. Principal problems: Debility Status post closed right hip fragility fracture s/p operative repair Osteopenia: Last DEXA 2012. Anemia, blood loss, on iron, reassess in the a.m. Acute kidney injury superimposed on CKD, stage 3: Baseline Cr 1.5. Protein calorie malnutrition Ongoing debility and need for rehabilitation. Has completed factor XaA inhibitor , now back on Plavix, will add back on her aspirin. - Continue PT - Continue oxycodone and Tylenol for pain - Discontinue Eliquis for DVT ppx - Continue Fe and Ca/D supplementation - Continue Senna and Miralax for constipation - Continue dietary encouragement and supplementation for malnutrition - Continue delirium ppx with ramelteon and ear plugs - Bran removed, no wound dehiscence. - Recheck CBC and BMP in 1 week - Plan for outpatient initiation of Forteo in the setting of fragility fracture Chronic, stable problems: History of CVA, 2013: Completed factor Xa inhibitor for prophylaxis, will place back on aspirin and Plavix. Carotid artery stenosis HTN: Amlodipine, atenolol, losartan (which was reinitiated and hydralazine discontinued when renal function improved). Hypothyroidism: Levothyroxine. HLD: Statin. Anxiety: Fluoxetine, alprazolam. Chronic vertigo: Meclizine prn. Hospitalization details: # Code status: FULL. # Emergency contact: . # Disposition: Continue on swing bed status. Anticipate discharge to home when functional status improves.
[2017-10-26] MEDS: Aspirin 81 MG Tab.EC PO SCH (10:15)
[2017-10-26] MEDS: ALPRAZolam 0.25 MG Tab PO SCH (21:00)
[2017-10-27] MEDS: Levothyroxine 88 MCG Tab PO SCH (07:32)
[2017-10-27] MEDS: oxyCODONE 5 MG Tab PO PRN (07:51)
[2017-10-27] MEDS: Ferrous Sulfate 325 MG Tab PO SCH (07:52)
[2017-10-27] MEDS: Aspirin 81 MG Tab.EC PO SCH (07:53)
[2017-10-27] MEDS: atorvaSTATin 40 MG Tab PO SCH (08:50)
[2017-10-27] MEDS: FLUoxetine 10 MG Cap PO SCH (08:50)
[2017-10-27] MEDS: Calcium Citrate/Vitamin D3 315 MG-250 Unit Tab PO SCH ×2 (08:54→20:48)
[2017-10-27] MEDS: Clopidogrel 75 MG Tab PO SCH (08:54)
[2017-10-27] MEDS: Losartan 50 MG Tab PO SCH (09:03)
[2017-10-27] MEDS: Atenolol 25 MG Tab PO SCH ×2 (09:03→20:45)
[2017-10-27] MEDS: ALPRAZolam 0.25 MG Tab PO SCH (21:50)
[2017-10-28] MEDS: Levothyroxine 88 MCG Tab PO SCH (07:20)
[2017-10-28] MEDS: Clopidogrel 75 MG Tab PO SCH (08:24)
[2017-10-28] MEDS: Ferrous Sulfate 325 MG Tab PO SCH (08:24)
[2017-10-28] MEDS: FLUoxetine 10 MG Cap PO SCH (08:24)
[2017-10-28] MEDS: Aspirin 81 MG Tab.EC PO SCH (08:24)
[2017-10-28] MEDS: Calcium Citrate/Vitamin D3 315 MG-250 Unit Tab PO SCH ×2 (08:24→21:57)
[2017-10-28] MEDS: atorvaSTATin 40 MG Tab PO SCH (08:25)
[2017-10-28] MEDS: Atenolol 25 MG Tab PO SCH ×2 (09:20→21:54)
[2017-10-28] MEDS: amLODIPine 5 MG Tab PO SCH (09:20)
[2017-10-28] MEDS: oxyCODONE 5 MG Tab PO PRN (09:20)
[2017-10-28] MEDS: Losartan 50 MG Tab PO SCH (09:20)
[2017-10-28] MEDS: Magnesium Hydroxide 400 MG/5 ML Susp 30 ML Cup PO PRN (15:27)
[2017-10-28] MEDS: ALPRAZolam 0.25 MG Tab PO SCH (22:01)
[2017-10-29] MEDS: Levothyroxine 88 MCG Tab PO SCH (08:09)
[2017-10-29] MEDS: Calcium Citrate/Vitamin D3 315 MG-250 Unit Tab PO SCH ×2 (08:10→21:14)
[2017-10-29] MEDS: Ferrous Sulfate 325 MG Tab PO SCH (08:10)
[2017-10-29] MEDS: Aspirin 81 MG Tab.EC PO SCH (08:10)
[2017-10-29] MEDS: Clopidogrel 75 MG Tab PO SCH (08:12)
[2017-10-29] MEDS: atorvaSTATin 40 MG Tab PO SCH (08:13)
[2017-10-29] MEDS: Losartan 50 MG Tab PO SCH (08:13)
[2017-10-29] MEDS: FLUoxetine 10 MG Cap PO SCH (08:13)
[2017-10-29] MEDS: Atenolol 25 MG Tab PO SCH ×2 (08:14→21:16)
[2017-10-29] MEDS: amLODIPine 5 MG Tab PO SCH (08:14)
[2017-10-29] MEDS: ALPRAZolam 0.25 MG Tab PO SCH (21:14)
[2017-10-30] MEDS: Levothyroxine 88 MCG Tab PO SCH (07:37)
[2017-10-30] MEDS: Aspirin 81 MG Tab.EC PO SCH (08:16)
[2017-10-30] MEDS: Ferrous Sulfate 325 MG Tab PO SCH (08:16)
[2017-10-30] MEDS: Calcium Citrate/Vitamin D3 315 MG-250 Unit Tab PO SCH ×2 (08:16→21:21)
[2017-10-30] MEDS: amLODIPine 5 MG Tab PO SCH (08:20)
[2017-10-30] MEDS: Atenolol 25 MG Tab PO SCH ×2 (08:20→21:21)
[2017-10-30] MEDS: Losartan 50 MG Tab PO SCH (08:21)
[2017-10-30] MEDS: atorvaSTATin 40 MG Tab PO SCH (08:22)
[2017-10-30] MEDS: FLUoxetine 10 MG Cap PO SCH (08:23)
[2017-10-30] MEDS: Clopidogrel 75 MG Tab PO SCH (08:23)
[2017-10-30] MEDS: Acetaminophen 500 MG Tab PO PRN (08:24)
[2017-10-30] MEDS: ALPRAZolam 0.25 MG Tab PO SCH (21:21)
[2017-10-31] MEDS: Aspirin 81 MG Tab.EC PO SCH (08:09)
[2017-10-31] MEDS: Clopidogrel 75 MG Tab PO SCH (08:09)
[2017-10-31] MEDS: Levothyroxine 88 MCG Tab PO SCH (08:09)
[2017-10-31] MEDS: Calcium Citrate/Vitamin D3 315 MG-250 Unit Tab PO SCH ×2 (08:09→21:12)
[2017-10-31] MEDS: Ferrous Sulfate 325 MG Tab PO SCH (08:10)
[2017-10-31] MEDS: Atenolol 25 MG Tab PO SCH ×2 (08:10→21:12)
[2017-10-31] MEDS: amLODIPine 5 MG Tab PO SCH (08:13)
[2017-10-31] MEDS: Losartan 50 MG Tab PO SCH (08:14)
[2017-10-31] MEDS: atorvaSTATin 40 MG Tab PO SCH (08:15)
[2017-10-31] MEDS: FLUoxetine 10 MG Cap PO SCH (08:15)
--- NOTE | 2017-10-31 10:04 | PCM.PN ---
- General Info Date of Service: 10/31/17 Functional Status: Reports: Pain Controlled, Tolerating Diet, Ambulating, New Symptoms (Dark older appearing blood oozing from wound, no wound dehiscence), Incentive Spirometry - Review of Systems General: Reports: Weakness. Denies: Fever, Fatigue, Malaise, Chills, Night Sweats, Appetite Pulmonary: Reports: No Symptoms Cardiovascular: Reports: No Symptoms Gastrointestinal: Reports: No Symptoms Skin: Reports: Pruritis, Other (Darker appearing blood slightly oozing from incisional site, no serosanguineous) Neurological: Reports: Pre-Existing Deficit, Gait Disturbance Psychiatric: Reports: No Symptoms - Patient Data Vitals - Most Recent: Last Vital Signs Temp 98.4 F 10/31/17 05:08 Pulse 64 10/31/17 08:10 Resp 18 10/31/17 05:08 BP 152/84 H 10/31/17 08:14 Pulse Ox 96 10/31/17 05:08 Weight - Most Recent: 155 lb 5 oz I&O - Last 24 Hours: Intake & Output 10/30/17 10/31/17 10/31/17 22:59 06:59 14:59 Intake Total 490 50 Balance 490 50 Med Orders - Current: Current Medications Acetaminophen (Tylenol Extra Strength) 1,000 mg PO TID PRN PRN Reason: Pain Last Admin: 10/30/17 08:24 Dose: 1,000 mg Alprazolam (Xanax) 0.5 mg PO BEDTIME [facility] Last Admin: 10/30/17 21:21 Dose: 0.5 mg Amlodipine Besylate (Norvasc) 5 mg PO DAILY [facility] Last Admin: 10/31/17 08:13 Dose: 5 mg Aspirin (Halfprin) 81 mg PO WITHBREAKFAST [facility] Last Admin: 10/31/17 08:09 Dose: 81 mg Atenolol (Tenormin) 50 mg PO BID [facility] Last Admin: 10/31/17 08:10 Dose: 50 mg Atorvastatin Calcium (Lipitor) 40 mg PO DAILY [facility] Last Admin: 10/31/17 08:15 Dose: 40 mg Calcium Citrate (Calcium Citrate + D) 2 tab PO BID [facility] Last Admin: 10/31/17 08:09 Dose: 2 tab Clopidogrel Bisulfate (Plavix) 75 mg PO DAILY [facility] Last Admin: 04/28/18 08:09 Dose: 75 mg Ferrous Sulfate (Ferrous Sulfate) 325 mg PO WITHBREAKFAST [facility] Last Admin: 10/31/17 08:10 Dose: 325 mg Fluoxetine HCl (Prozac) 20 mg PO DAILY [facility] Last Admin: 10/31/17 08:15 Dose: 20 mg Levothyroxine Sodium (Synthroid) 88 mcg PO ACBREAKFAST [facility] Last Admin: 10/31/17 08:09 Dose: 88 mcg Losartan Potassium (Cozaar) 50 mg PO DAILY [facility] Last Admin: 10/31/17 08:14 Dose: 50 mg Magnesium Hydroxide (Milk Of Magnesia) 30 ml PO DAILY PRN PRN Reason: Constipation Last Admin: 10/28/17 15:27 Dose: 30 ml Meclizine HCl (Antivert) 25 mg PO BID PRN PRN Reason: Dizziness Ondansetron HCl (Zofran Odt) 4 mg PO Q6H PRN PRN Reason: Nausea/Vomiting Last Admin: 10/13/17 16:51 Dose: 4 mg Oxycodone HCl (Oxycodone) 5 mg PO Q4H PRN PRN Reason: Pain (severe 7-10) Last Admin: 10/28/17 09:20 Dose: 5 mg Polyethylene Glycol (Miralax) 17 gm PO BEDTIME PRN PRN Reason: Constipation Ramelteon (Rozerem) 8 mg PO BEDTIME PRN PRN Reason: Delirium prophylaxis Last Admin: 10/25/17 00:49 Dose: 8 mg Senna/Docusate Sodium (Senna Plus) 1 tab PO BID [facility] Last Admin: 10/31/17 08:14 Dose: 1 tab Discontinued Medications Alprazolam (Xanax) 0.5 mg PO BEDTIME PRN PRN Reason: ANXIETY Last Admin: 10/14/17 20:56 Dose: 0.5 mg Apixaban (Eliquis) 2.5 mg PO BID [facility] Stop: 10/23/17 21:01 Last Admin: 10/23/17 21:30 Dose: 2.5 mg Clopidogrel Bisulfate (Plavix) 75 mg PO DAILY [facility] Last Admin: 10/14/17 10:08 Dose: Not Given Fluoxetine HCl (Prozac) 20 mg PO DAILY [facility] Last Admin: 10/14/17 01:13 Dose: Not Given Hydralazine HCl (Apresoline) 100 mg PO TIDMEALS [facility] Last Admin: 10/19/17 08:23 Dose: 100 mg Hydralazine HCl (Apresoline) 50 mg PO TIDMEALS [facility] Stop: 10/21/17 18:00 Last Admin: 10/21/17 18:18 Dose: 50 mg Hydralazine HCl (Apresoline) 25 mg PO TIDMEALS [facility] Stop: 10/22/17 18:01 Last Admin: 10/22/17 18:46 Dose: 25 mg Levothyroxine Sodium (Synthroid) Confirm Administered Dose 88 mcg .ROUTE .STK- MED ONE Stop: 10/24/17 07:39 Last Admin: 10/24/17 07:49 Dose: Not Given Senna/Docusate Sodium (Senna Plus) 1 tab PO BEDTIME [facility] Last Admin: 10/16/17 21:15 Dose: 1 tab - Exam Quality Assessment: No: Supplemental Oxygen General: Alert, Oriented Extremities: No Pedal Edema Wound/Incisions: Drainage (Dark losing blood no clots draining from incisional site, bruising, no wound dehiscence, nontender, no signs of infection) - Problem List Review Problem List Initiated/Reviewed/Updated: Yes - Plan Plan:: HPI Summary: 82-year-old female who fell at home on 10/09/17 and sustained a right hip fracture requiring operative repair at [place], [place]. She was admitted to [facility] for physical therapy and rehabilitation. New problem. I was notified to view wound as she has been having slight oozing and drainage from incisional site right hip, dark appearing blood , no clots, no signs of infection, skin around surrounding areas firm without evidence of forming hematoma. No wound dehiscence Principal problems: Debility Status post closed right hip fragility fracture s/p operative repair Osteopenia: Last DEXA 2012. Anemia, blood loss, on iron, reassess in the a.m. Acute kidney injury superimposed on CKD, stage 3: Baseline Cr 1.5. Protein calorie malnutrition Ongoing debility and need for rehabilitation. Has completed factor XaA inhibitor , now back on Plavix, will add back on her aspirin. - Continue PT - Continue oxycodone and Tylenol for pain - Discontinued Eliquis for DVT ppx - Continue Fe and Ca/D supplementation - Continue Senna and Miralax for constipation - Continue dietary encouragement and supplementation for malnutrition - Continue delirium ppx with ramelteon and ear plugs - Bran removed, no wound dehiscence. - Plan for outpatient initiation of Forteo in the setting of fragility fracture Chronic, stable problems: History of CVA, 2012: Completed factor Xa inhibitor for prophylaxis, in light of wound oozing will hold Plavix however continue ASA. Carotid artery stenosis HTN: Amlodipine, atenolol, losartan (which was reinitiated and hydralazine discontinued when renal function improved). Hypothyroidism: Levothyroxine. HLD: Statin. Anxiety: Fluoxetine, alprazolam. Chronic vertigo: Meclizine prn. Hospitalization details: # Code status: FULL. # Emergency contact: . # Disposition: Continue on swing bed status. Anticipate discharge to home when functional status improves. Overall plan today, compression to dressing, normal activity, hold Plavix restart date placed. Can continue aspirin. Dressing changes, monitor carefully as high risk for wound dehiscence and forming hematoma, hemoglobin check today
[2017-10-31] MEDS: ALPRAZolam 0.25 MG Tab PO SCH (21:12)
[2017-11-01] MEDS: Levothyroxine 88 MCG Tab PO SCH (07:42)
[2017-11-01] MEDS: Ferrous Sulfate 325 MG Tab PO SCH (07:42)
[2017-11-01] MEDS: Aspirin 81 MG Tab.EC PO SCH (07:43)
[2017-11-01] MEDS: Calcium Citrate/Vitamin D3 315 MG-250 Unit Tab PO SCH ×2 (08:13→20:57)
[2017-11-01] MEDS: FLUoxetine 10 MG Cap PO SCH (08:13)
[2017-11-01] MEDS: Atenolol 25 MG Tab PO SCH ×2 (08:14→21:06)
[2017-11-01] MEDS: atorvaSTATin 40 MG Tab PO SCH (08:15)
[2017-11-01] MEDS: Losartan 50 MG Tab PO SCH (08:15)
[2017-11-01] MEDS: amLODIPine 5 MG Tab PO SCH (08:16)
[2017-11-01] MEDS: ALPRAZolam 0.25 MG Tab PO SCH (20:57)
[2017-11-02] MEDS: Levothyroxine 88 MCG Tab PO SCH (07:35)
[2017-11-02] MEDS: Ferrous Sulfate 325 MG Tab PO SCH (08:00)
[2017-11-02] MEDS: Calcium Citrate/Vitamin D3 315 MG-250 Unit Tab PO SCH ×2 (08:10→20:45)
[2017-11-02] MEDS: Losartan 50 MG Tab PO SCH (08:10)
[2017-11-02] MEDS: FLUoxetine 10 MG Cap PO SCH (08:10)
[2017-11-02] MEDS: atorvaSTATin 40 MG Tab PO SCH (08:10)
[2017-11-02] MEDS: Aspirin 81 MG Tab.EC PO SCH (08:10)
[2017-11-02] MEDS: Atenolol 25 MG Tab PO SCH ×2 (10:11→20:44)
[2017-11-02] MEDS: oxyCODONE 5 MG Tab PO PRN (10:12)
[2017-11-02] MEDS: amLODIPine 5 MG Tab PO SCH (10:13)
[2017-11-02] MEDS ORDERED: amLODIPine 5 MG Tab ONE (10:42)
[2017-11-02] MEDS: ALPRAZolam 0.25 MG Tab PO SCH (21:11)
[2017-11-03] MEDS: Levothyroxine 88 MCG Tab PO SCH (07:41)
[2017-11-03] MEDS: Aspirin 81 MG Tab.EC PO SCH (07:59)
[2017-11-03] MEDS: atorvaSTATin 40 MG Tab PO SCH (07:59)
[2017-11-03] MEDS: Calcium Citrate/Vitamin D3 315 MG-250 Unit Tab PO SCH ×2 (07:59→21:10)
[2017-11-03] MEDS: Ferrous Sulfate 325 MG Tab PO SCH (07:59)
[2017-11-03] MEDS: Atenolol 25 MG Tab PO SCH ×2 (08:00→21:10)
[2017-11-03] MEDS: amLODIPine 5 MG Tab PO SCH (08:01)
[2017-11-03] MEDS: Losartan 50 MG Tab PO SCH (08:01)
[2017-11-03] MEDS: FLUoxetine 10 MG Cap PO SCH (08:02)
[2017-11-03] MEDS: Magnesium Hydroxide 400 MG/5 ML Susp 30 ML Cup PO PRN (12:00)
[2017-11-03] MEDS: ALPRAZolam 0.25 MG Tab PO SCH (21:10)
[2017-11-04] MEDS: Levothyroxine 88 MCG Tab PO SCH (07:20)
[2017-11-04] MEDS: Calcium Citrate/Vitamin D3 315 MG-250 Unit Tab PO SCH ×2 (08:05→21:06)
[2017-11-04] MEDS: FLUoxetine 10 MG Cap PO SCH (08:06)
[2017-11-04] MEDS: Ferrous Sulfate 325 MG Tab PO SCH (08:07)
[2017-11-04] MEDS: Atenolol 25 MG Tab PO SCH ×2 (08:07→21:06)
[2017-11-04] MEDS: Aspirin 81 MG Tab.EC PO SCH (08:07)
[2017-11-04] MEDS: Clopidogrel 75 MG Tab PO SCH (08:08)
[2017-11-04] MEDS: atorvaSTATin 40 MG Tab PO SCH (08:09)
[2017-11-04] MEDS: Losartan 50 MG Tab PO SCH (08:09)
[2017-11-04] MEDS: amLODIPine 5 MG Tab PO SCH (08:10)
[2017-11-04] MEDS: Acetaminophen 500 MG Tab PO PRN ×2 (08:44→10:15)
[2017-11-04] MEDS: ALPRAZolam 0.25 MG Tab PO SCH (21:06)
[2017-11-05] MEDS: Levothyroxine 88 MCG Tab PO SCH (07:22)
[2017-11-05] MEDS: Ferrous Sulfate 325 MG Tab PO SCH (08:42)
[2017-11-05] MEDS: Aspirin 81 MG Tab.EC PO SCH (08:42)
[2017-11-05] MEDS: atorvaSTATin 40 MG Tab PO SCH (08:42)
[2017-11-05] MEDS: Clopidogrel 75 MG Tab PO SCH (08:43)
[2017-11-05] MEDS: Atenolol 25 MG Tab PO SCH ×2 (08:44→21:06)
[2017-11-05] MEDS: FLUoxetine 10 MG Cap PO SCH (08:45)
[2017-11-05] MEDS: amLODIPine 5 MG Tab PO SCH (08:45)
[2017-11-05] MEDS: Losartan 50 MG Tab PO SCH (08:46)
[2017-11-05] MEDS: Calcium Citrate/Vitamin D3 315 MG-250 Unit Tab PO SCH ×2 (08:46→21:06)
[2017-11-05] MEDS: ALPRAZolam 0.25 MG Tab PO SCH (21:06)
[2017-11-06] MEDS: Levothyroxine 88 MCG Tab PO SCH (06:41)
[2017-11-06] MEDS: Aspirin 81 MG Tab.EC PO SCH (07:52)
[2017-11-06] MEDS: Ferrous Sulfate 325 MG Tab PO SCH (07:52)
[2017-11-06] MEDS: Calcium Citrate/Vitamin D3 315 MG-250 Unit Tab PO SCH ×2 (08:00→21:10)
[2017-11-06] MEDS: atorvaSTATin 40 MG Tab PO SCH (08:01)
[2017-11-06] MEDS: Losartan 50 MG Tab PO SCH (08:01)
[2017-11-06] MEDS: Clopidogrel 75 MG Tab PO SCH (08:02)
[2017-11-06] MEDS: amLODIPine 5 MG Tab PO SCH (08:02)
[2017-11-06] MEDS: FLUoxetine 10 MG Cap PO SCH (08:02)
[2017-11-06] MEDS: Atenolol 25 MG Tab PO SCH ×2 (08:03→21:09)
[2017-11-06] MEDS ORDERED: Losartan 50 MG Tab PO ONE (09:00)
--- NOTE | 2017-11-06 15:29 | PCM.PN ---
- General Info Date of Service: 11/06/17 Subjective Update: Ms. Boykin reports no concerns today. Saw orthopedic surgery yesterday who she states had concern about an area not healing as well, so her activity level has not advanced. Progressing with physical therapy though. Pain managed with current medication regimen. Appetite improving. Stooling and voiding well. No nursing concerns. - Patient Data Vitals - Most Recent: Last Vital Signs Temp 36.6 C 11/06/17 15:11 Pulse 60 11/06/17 15:11 Resp 16 11/06/17 15:11 BP 123/69 11/06/17 15:11 Pulse Ox 95 11/06/17 15:11 Weight - Most Recent: 69.4 kg I&O - Last 24 Hours: Intake & Output 11/06/17 11/06/17 11/06/17 06:59 14:59 22:59 Intake Total 100 680 Balance 100 680 Lab Results Last 24 Hours: Laboratory Results - last 24 hr 11/06/17 11/06/17 Range/Units 08:45 08:45 WBC 4.7 L (5.0-10.0) 10^3/uL RBC 2.99 L (3.80-5.50) 10^6/uL Hgb 9.1 L (12.0-16.0) g/dL Hct 27.7 L (37.0-47.0) % MCV 92.7 H (82.0-92.0) fL MCH 30.3 (27.0-31.0) pg MCHC 32.7 (32.0-36.0) g/dL RDW 15.1 H (11.5-14.5) % Plt Count 256 (150-300) 10^3/uL MPV 6.4 L (7.4-10.4) fL Sodium 139 (136-145) mmol/L Potassium 3.8 (3.3-5.3) mmol/L Chloride 102 (98-115) mmol/L Carbon Dioxide 24.2 (21.0-32.0) mmol/L BUN 20 (6-25) mg/dL Creatinine 1.31 H (0.51-1.17) mg/dL Est Cr Clr Drug Dosing 24.60 mL/min Estimated GFR (MDRD) 39 mL/min Glucose 146 H (70-110) mg/dL Calcium 9.0 (8.7-10.3) mg/dL Med Orders - Current: Current Medications Acetaminophen (Tylenol Extra Strength) 1,000 mg PO TID PRN PRN Reason: Pain Last Admin: 11/04/17 10:15 Dose: 1,000 mg Alprazolam (Xanax) 0.5 mg PO BEDTIME [facility] Last Admin: 11/05/17 21:06 Dose: 0.5 mg Amlodipine Besylate (Norvasc) 10 mg PO DAILY [facility] Last Admin: 11/06/17 08:02 Dose: 10 mg Aspirin (Halfprin) 81 mg PO WITHBREAKFAST [facility] Last Admin: 11/06/17 07:52 Dose: 81 mg Atenolol (Tenormin) 50 mg PO BID [facility] Last Admin: 11/06/17 08:03 Dose: 50 mg Atorvastatin Calcium (Lipitor) 40 mg PO DAILY [facility] Last Admin: 11/06/17 08:01 Dose: 40 mg Calcium Citrate (Calcium Citrate + D) 2 tab PO BID [facility] Last Admin: 11/06/17 08:00 Dose: 2 tab Clopidogrel Bisulfate (Plavix) 75 mg PO DAILY [facility] Last Admin: 11/06/17 08:02 Dose: 75 mg Ferrous Sulfate (Ferrous Sulfate) 325 mg PO WITHBREAKFAST [facility] Last Admin: 11/06/17 07:52 Dose: 325 mg Fluoxetine HCl (Prozac) 20 mg PO DAILY [facility] Last Admin: 11/06/17 08:02 Dose: 20 mg Levothyroxine Sodium (Synthroid) 88 mcg PO ACBREAKFAST [facility] Last Admin: 11/06/17 06:41 Dose: 88 mcg Losartan Potassium (Cozaar) 100 mg PO DAILY [facility] Magnesium Hydroxide (Milk Of Magnesia) 30 ml PO DAILY PRN PRN Reason: Constipation Last Admin: 11/03/17 12:00 Dose: 30 ml Meclizine HCl (Antivert) 25 mg PO BID PRN PRN Reason: Dizziness Ondansetron HCl (Zofran Odt) 4 mg PO Q6H PRN PRN Reason: Nausea/Vomiting Last Admin: 10/13/17 16:51 Dose: 4 mg Oxycodone HCl (Oxycodone) 5 mg PO Q4H PRN PRN Reason: Pain (severe 7-10) Last Admin: 11/02/17 10:12 Dose: 5 mg Polyethylene Glycol (Miralax) 17 gm PO BEDTIME PRN PRN Reason: Constipation Ramelteon (Rozerem) 8 mg PO BEDTIME PRN PRN Reason: Delirium prophylaxis Last Admin: 10/25/17 00:49 Dose: 8 mg Senna/Docusate Sodium (Senna Plus) 1 tab PO BID [facility] Last Admin: 11/06/17 08:02 Dose: 1 tab Discontinued Medications Alprazolam (Xanax) 0.5 mg PO BEDTIME PRN PRN Reason: ANXIETY Last Admin: 10/14/17 20:56 Dose: 0.5 mg Amlodipine Besylate (Norvasc) 5 mg PO DAILY [facility] Last Admin: 11/01/17 08:16 Dose: 5 mg Amlodipine Besylate (Norvasc) Confirm Administered Dose 5 mg .ROUTE .STK-MED ONE Stop: 11/02/17 10:43 Last Admin: 11/02/17 16:25 Dose: Not Given Apixaban (Eliquis) 2.5 mg PO BID [facility] Stop: 10/23/17 21:01 Last Admin: 10/23/17 21:30 Dose: 2.5 mg Clopidogrel Bisulfate (Plavix) 75 mg PO DAILY [facility] Last Admin: 10/14/17 10:08 Dose: Not Given Fluoxetine HCl (Prozac) 20 mg PO DAILY [facility] Last Admin: 10/14/17 01:13 Dose: Not Given Hydralazine HCl (Apresoline) 100 mg PO TIDMEALS [facility] Last Admin: 10/19/17 08:23 Dose: 100 mg Hydralazine HCl (Apresoline) 50 mg PO TIDMEALS [facility] Stop: 10/21/17 18:00 Last Admin: 10/21/17 18:18 Dose: 50 mg Hydralazine HCl (Apresoline) 25 mg PO TIDMEALS [facility] Stop: 10/22/17 18:01 Last Admin: 10/22/17 18:46 Dose: 25 mg Levothyroxine Sodium (Synthroid) Confirm Administered Dose 88 mcg .ROUTE .STK- MED ONE Stop: 10/24/17 07:39 Last Admin: 10/24/17 07:49 Dose: Not Given Losartan Potassium (Cozaar) 50 mg PO DAILY [facility] Last Admin: 11/06/17 08:01 Dose: 50 mg Losartan Potassium (Cozaar) 50 mg PO ONETIME [facility] Stop: 11/06/17 09:01 Last Admin: 11/06/17 10:38 Dose: 50 mg Senna/Docusate Sodium (Senna Plus) 1 tab PO BEDTIME [facility] Last Admin: 10/16/17 21:15 Dose: 1 tab - Exam Physical Findings Comments:: GENERAL: Well-appearing elderly female sitting in bedside chair in no acute distress. HEENT: Normocephalic, atraumatic. Conjunctiva clear. Nares patent without discharge. Mucous membranes moist. NECK: Supple, no masses. CV: Regular rate and rhythm, 2/6 systolic murmur at base. 2+ radial and pedal pulses. PULMONARY: Normal effort. ABDOMEN: Soft, nontender, nondistended. EXTREMITIES/MSK/DERMATOLOGIC: R hip incision healing without erythema or drainage. R elbow with mild residual ecchymosis. Moves upper extremities in chair without difficulty. NEUROLOGICAL: No obvious deficits. PSYCHIATRIC: Alert, interactive, appropriate affect. - Problem List Review Problem List Initiated/Reviewed/Updated: Yes - My Orders Last 24 Hours: My Active Orders 11/07/17 09:00 Losartan [Cozaar] 100 mg PO DAILY - Plan Plan:: HPI Summary: 82-year-old female who fell at home on 10/09/17 and sustained a right hip fracture requiring operative repair at [place], [place]. She was admitted to swing bed for physical therapy and rehabilitation. Principal problems: # Debility # Status post closed right hip fragility fracture s/p operative repair # Osteoporosis # Anemia, blood loss # Hypertension # Acute kidney injury superimposed on CKD, stage 3: Baseline Cr 1.5. # Protein calorie malnutrition Ongoing debility and need for rehabilitation. Consistently elevated BPs in the past several days. Improvement in H/H and back to baseline Cr. - Continue PT - Continue oxycodone and Tylenol for pain - Continue Fe and Ca/D supplementation - Increase losartan to 100mg; Continue amlodipine and atenolol - Continue dietary encouragement and supplementation for malnutrition - Continue delirium ppx with ramelteon and ear plugs - Plan for outpatient initiation of Forteo in the setting of fragility fracture Chronic, stable problems: # History of CVA, 2012: Plavix and ASA reinitiated following anticoagulation for DVT ppx s/p surgery. # Carotid artery stenosis # Hypothyroidism: Levothyroxine. # HLD: Statin, ASA. # Constipation: Docusate, Miralax prn, MgOx prn. # Anxiety: Fluoxetine. # Insomnia: Alprazolam. # Chronic vertigo: Meclizine prn. Hospitalization details: # Code status: FULL. # Emergency contact: . # Disposition: Continue on swing bed status. Anticipate discharge to home when functional status improves.
[2017-11-06] MEDS: ALPRAZolam 0.25 MG Tab PO SCH (21:09)
[2017-11-07] MEDS: Levothyroxine 88 MCG Tab PO SCH (07:53)
[2017-11-07] MEDS: Ferrous Sulfate 325 MG Tab PO SCH (07:53)
[2017-11-07] MEDS: Aspirin 81 MG Tab.EC PO SCH (07:54)
[2017-11-07] MEDS: atorvaSTATin 40 MG Tab PO SCH (08:00)
[2017-11-07] MEDS: Clopidogrel 75 MG Tab PO SCH (08:00)
[2017-11-07] MEDS: Losartan 50 MG Tab PO SCH (08:01)
[2017-11-07] MEDS: amLODIPine 5 MG Tab PO SCH (08:02)
[2017-11-07] MEDS: Atenolol 25 MG Tab PO SCH ×2 (08:02→21:03)
[2017-11-07] MEDS: FLUoxetine 10 MG Cap PO SCH (08:02)
[2017-11-07] MEDS: Calcium Citrate/Vitamin D3 315 MG-250 Unit Tab PO SCH ×2 (08:03→21:03)
[2017-11-07] MEDS: ALPRAZolam 0.25 MG Tab PO SCH (21:03)
[2017-11-08] MEDS: Levothyroxine 88 MCG Tab PO SCH (08:28)
[2017-11-08] MEDS: Calcium Citrate/Vitamin D3 315 MG-250 Unit Tab PO SCH ×2 (08:28→21:05)
[2017-11-08] MEDS: FLUoxetine 10 MG Cap PO SCH (08:29)
[2017-11-08] MEDS: Clopidogrel 75 MG Tab PO SCH (08:29)
[2017-11-08] MEDS: amLODIPine 5 MG Tab PO SCH (08:30)
[2017-11-08] MEDS: atorvaSTATin 40 MG Tab PO SCH (08:31)
[2017-11-08] MEDS: Atenolol 25 MG Tab PO SCH ×2 (08:31→21:05)
[2017-11-08] MEDS: Ferrous Sulfate 325 MG Tab PO SCH (08:31)
[2017-11-08] MEDS: Losartan 50 MG Tab PO SCH (08:32)
[2017-11-08] MEDS: Aspirin 81 MG Tab.EC PO SCH (08:32)
[2017-11-08] MEDS: ALPRAZolam 0.25 MG Tab PO SCH (21:05)
[2017-11-09] MEDS: Levothyroxine 88 MCG Tab PO SCH (07:22)
[2017-11-09] MEDS: Ferrous Sulfate 325 MG Tab PO SCH (08:14)
[2017-11-09] MEDS: Calcium Citrate/Vitamin D3 315 MG-250 Unit Tab PO SCH ×2 (08:14→21:00)
[2017-11-09] MEDS: Aspirin 81 MG Tab.EC PO SCH (08:15)
[2017-11-09] MEDS: Clopidogrel 75 MG Tab PO SCH (08:16)
[2017-11-09] MEDS: amLODIPine 5 MG Tab PO SCH (08:16)
[2017-11-09] MEDS: Atenolol 25 MG Tab PO SCH ×2 (08:17→21:00)
[2017-11-09] MEDS: atorvaSTATin 40 MG Tab PO SCH (08:17)
[2017-11-09] MEDS: Losartan 50 MG Tab PO SCH (08:18)
[2017-11-09] MEDS: FLUoxetine 10 MG Cap PO SCH (08:18)
--- NOTE | 2017-11-09 09:20 | PCM.PN ---
- General Info Date of Service: 11/09/17 Subjective Update: Patient voices no concerns today. She states physical therapy is going well and she is progressing. Functional Status: Reports: Pain Controlled, Tolerating Diet, Ambulating (toe touch weight bearing), Urinating. Denies: New Symptoms - Review of Systems General: Reports: No Symptoms HEENT: Denies: Headaches Pulmonary: Denies: Shortness of Breath Cardiovascular: Reports: Edema. Denies: Chest Pain Gastrointestinal: Reports: Decreased Appetite (improving). Denies: Abdominal Pain, Constipation, Diarrhea Genitourinary: Reports: No Symptoms Musculoskeletal: Reports: Other (Denies right hip pain) Neurological: Denies: Headache Psychiatric: Reports: No Symptoms - Patient Data Vitals - Most Recent: Last Vital Signs Temp 98.6 F 11/09/17 06:08 Pulse 63 11/09/17 08:17 Resp 18 11/09/17 06:08 BP 139/76 11/09/17 08:18 Pulse Ox 95 11/09/17 06:08 Weight - Most Recent: 153 lb I&O - Last 24 Hours: Intake & Output 11/08/17 11/09/17 11/09/17 22:59 06:59 14:59 Intake Total 200 Balance 200 Med Orders - Current: Current Medications Acetaminophen (Tylenol Extra Strength) 1,000 mg PO TID PRN PRN Reason: Pain Last Admin: 11/04/17 10:15 Dose: 1,000 mg Alprazolam (Xanax) 0.5 mg PO BEDTIME [facility] Last Admin: 11/08/17 21:05 Dose: 0.5 mg Amlodipine Besylate (Norvasc) 10 mg PO DAILY [facility] Last Admin: 11/09/17 08:16 Dose: 10 mg Aspirin (Halfprin) 81 mg PO WITHBREAKFAST [facility] Last Admin: 11/09/17 08:15 Dose: 81 mg Atenolol (Tenormin) 50 mg PO BID [facility] Last Admin: 11/09/17 08:17 Dose: 50 mg Atorvastatin Calcium (Lipitor) 40 mg PO DAILY [facility] Last Admin: 11/09/17 08:17 Dose: 40 mg Calcium Citrate (Calcium Citrate + D) 2 tab PO BID [facility] Last Admin: 11/09/17 08:14 Dose: 2 tab Clopidogrel Bisulfate (Plavix) 75 mg PO DAILY [facility] Last Admin: 11/09/17 08:16 Dose: 75 mg Ferrous Sulfate (Ferrous Sulfate) 325 mg PO WITHBREAKFAST [facility] Last Admin: 11/09/17 08:14 Dose: 325 mg Fluoxetine HCl (Prozac) 20 mg PO DAILY [facility] Last Admin: 11/09/17 08:18 Dose: 20 mg Levothyroxine Sodium (Synthroid) 88 mcg PO ACBREAKFAST [facility] Last Admin: 11/09/17 07:22 Dose: 88 mcg Losartan Potassium (Cozaar) 100 mg PO DAILY [facility] Last Admin: 11/09/17 08:18 Dose: 100 mg Magnesium Hydroxide (Milk Of Magnesia) 30 ml PO DAILY PRN PRN Reason: Constipation Last Admin: 11/03/17 12:00 Dose: 30 ml Meclizine HCl (Antivert) 25 mg PO BID PRN PRN Reason: Dizziness Ondansetron HCl (Zofran Odt) 4 mg PO Q6H PRN PRN Reason: Nausea/Vomiting Last Admin: 10/13/17 16:51 Dose: 4 mg Oxycodone HCl (Oxycodone) 5 mg PO Q4H PRN PRN Reason: Pain (severe 7-10) Last Admin: 11/02/17 10:12 Dose: 5 mg Polyethylene Glycol (Miralax) 17 gm PO BEDTIME PRN PRN Reason: Constipation Ramelteon (Rozerem) 8 mg PO BEDTIME PRN PRN Reason: Delirium prophylaxis Last Admin: 10/25/17 00:49 Dose: 8 mg Senna/Docusate Sodium (Senna Plus) 1 tab PO BID [facility] Last Admin: 11/09/17 08:16 Dose: 1 tab Discontinued Medications Alprazolam (Xanax) 0.5 mg PO BEDTIME PRN PRN Reason: ANXIETY Last Admin: 10/14/17 20:56 Dose: 0.5 mg Amlodipine Besylate (Norvasc) 5 mg PO DAILY [facility] Last Admin: 11/01/17 08:16 Dose: 5 mg Amlodipine Besylate (Norvasc) Confirm Administered Dose 5 mg .ROUTE .STK-MED ONE Stop: 11/02/17 10:43 Last Admin: 11/02/17 16:25 Dose: Not Given Apixaban (Eliquis) 2.5 mg PO BID [facility] Stop: 10/23/17 21:01 Last Admin: 10/23/17 21:30 Dose: 2.5 mg Clopidogrel Bisulfate (Plavix) 75 mg PO DAILY [facility] Last Admin: 10/14/17 10:08 Dose: Not Given Fluoxetine HCl (Prozac) 20 mg PO DAILY [facility] Last Admin: 10/14/17 01:13 Dose: Not Given Hydralazine HCl (Apresoline) 100 mg PO TIDMEALS [facility] Last Admin: 10/19/17 08:23 Dose: 100 mg Hydralazine HCl (Apresoline) 50 mg PO TIDMEALS [facility] Stop: 10/21/17 18:00 Last Admin: 10/21/17 18:18 Dose: 50 mg Hydralazine HCl (Apresoline) 25 mg PO TIDMEALS [facility] Stop: 10/22/17 18:01 Last Admin: 10/22/17 18:46 Dose: 25 mg Levothyroxine Sodium (Synthroid) Confirm Administered Dose 88 mcg .ROUTE .STK- MED ONE Stop: 10/24/17 07:39 Last Admin: 10/24/17 07:49 Dose: Not Given Losartan Potassium (Cozaar) 50 mg PO DAILY [facility] Last Admin: 11/06/17 08:01 Dose: 50 mg Losartan Potassium (Cozaar) 50 mg PO ONETIME [facility] Stop: 11/06/17 09:01 Last Admin: 11/06/17 10:38 Dose: 50 mg Senna/Docusate Sodium (Senna Plus) 1 tab PO BEDTIME [facility] Last Admin: 10/16/17 21:15 Dose: 1 tab - Exam Quality Assessment: DVT Prophylaxis (On plavix and aspirin after completion of DVT prophylaxis s/p surgery ). No: Supplemental Oxygen, Urine Catheter General: Alert, Oriented, Cooperative, No Acute Distress Lungs: Clear to Auscultation, Normal Respiratory Effort Cardiovascular: Regular Rate, Regular Rhythm, Murmurs (2/6 systolic murmur) GI/Abdominal Exam: Normal Bowel Sounds, Soft, Non-Tender Extremities: Pedal Edema (RLE 1+; LLE trace) Skin: Warm, Dry Neurological: Normal Speech Psy/Mental Status: Alert, Normal Affect, Normal Mood - Problem List Review Problem List Initiated/Reviewed/Updated: Yes - Plan Plan:: HPI: This is an 82 year old female who fell at home on 10/09/17 and sustained a right hip fracture requiring operative repair at [facility] in [place], [place]. She was admitted here for physical therapy and rehabilitation. Primary assessment: -Debility -S/P closed right hip fragility fracture s/p operative repair. -Osteoporosis -Anemia, blood loss -Hypertension -Acute kidney injury superimposed on CKD stage 3. Baseline creatinine 1.5. -Protein calorie malnutrition Plan: -Ongoing debility with slow improvement requiring continued rehabilitation. Patient continues with toe touch weight bearing status. -Continue with physical therapy -Continue oxycodone and tylenol as needed for pain -Continue Ca/D supplementation -Recent labs show improvement in hemoglobin to 9.1. Continue oral iron. -BPs have improved with increased dose of losartan. Continue losartan at 100 mg daily along with norvasc and atenolol. -Recent labs show creatinine improved to 1.3. -Continue dietary encouragement and supplementation. Chronic, stable problems: -History of CVA, 2012. Continue with plavix and aspirin. -Carotid artery stenosis -Hypothyroidism. Continue levothyroxine. -Hyperlipidemia. Continue statin and ASA. -Constipation. Continue current medication regimen. -Anxiety. Continue fluoxetine and alprazolam -Insomnia. Continue ramelton and ear plugs. -Chronic vertigo. Continue meclizine PRN. Hospitalization details: -Code status: Full Code -Emergency contact: -Disposition: Continue in swing bed status. Anticipate discharge to home when functional status improves. Patient to see Dr. Shafer for repeat x-ray and examination in about 2 weeks. She will need Forteo initiated in the outpatient setting for her fragility fracture.
[2017-11-09] MEDS: Acetaminophen 500 MG Tab PO PRN (09:48)
[2017-11-09] MEDS: ALPRAZolam 0.25 MG Tab PO SCH (21:00)
[2017-11-10] MEDS: Levothyroxine 88 MCG Tab PO SCH (07:54)
[2017-11-10] MEDS: Ferrous Sulfate 325 MG Tab PO SCH (07:57)
[2017-11-10] MEDS: Aspirin 81 MG Tab.EC PO SCH (07:57)
[2017-11-10] MEDS: Calcium Citrate/Vitamin D3 315 MG-250 Unit Tab PO SCH ×2 (07:59→20:59)
[2017-11-10] MEDS: Losartan 50 MG Tab PO SCH (08:00)
[2017-11-10] MEDS: atorvaSTATin 40 MG Tab PO SCH (08:01)
[2017-11-10] MEDS: amLODIPine 5 MG Tab PO SCH (08:01)
[2017-11-10] MEDS: FLUoxetine 10 MG Cap PO SCH (08:02)
[2017-11-10] MEDS: Clopidogrel 75 MG Tab PO SCH (08:02)
[2017-11-10] MEDS: Atenolol 25 MG Tab PO SCH ×2 (08:05→20:59)
[2017-11-10] MEDS: ALPRAZolam 0.25 MG Tab PO SCH (20:59)
[2017-11-11] MEDS: Levothyroxine 88 MCG Tab PO SCH (07:11)
[2017-11-11] MEDS: Aspirin 81 MG Tab.EC PO SCH (08:10)
[2017-11-11] MEDS: Atenolol 25 MG Tab PO SCH ×2 (08:10→21:17)
[2017-11-11] MEDS: Ferrous Sulfate 325 MG Tab PO SCH (08:10)
[2017-11-11] MEDS: Clopidogrel 75 MG Tab PO SCH (08:10)
[2017-11-11] MEDS: Calcium Citrate/Vitamin D3 315 MG-250 Unit Tab PO SCH ×2 (08:11→21:17)
[2017-11-11] MEDS: FLUoxetine 10 MG Cap PO SCH (08:11)
[2017-11-11] MEDS: atorvaSTATin 40 MG Tab PO SCH (08:11)
[2017-11-11] MEDS: amLODIPine 5 MG Tab PO SCH (08:11)
[2017-11-11] MEDS: Losartan 50 MG Tab PO SCH (08:14)
[2017-11-11] MEDS: ALPRAZolam 0.25 MG Tab PO SCH (21:17)
[2017-11-12] MEDS: Levothyroxine 88 MCG Tab PO SCH (07:17)
[2017-11-12] MEDS: Clopidogrel 75 MG Tab PO SCH (08:13)
[2017-11-12] MEDS: Ferrous Sulfate 325 MG Tab PO SCH (08:13)
[2017-11-12] MEDS: amLODIPine 5 MG Tab PO SCH (08:14)
[2017-11-12] MEDS: Atenolol 25 MG Tab PO SCH ×2 (08:14→20:35)
[2017-11-12] MEDS: Losartan 50 MG Tab PO SCH (08:15)
[2017-11-12] MEDS: Calcium Citrate/Vitamin D3 315 MG-250 Unit Tab PO SCH ×2 (08:15→20:34)
[2017-11-12] MEDS: FLUoxetine 10 MG Cap PO SCH (08:15)
[2017-11-12] MEDS: atorvaSTATin 40 MG Tab PO SCH (08:15)
[2017-11-12] MEDS: Aspirin 81 MG Tab.EC PO SCH (08:16)
[2017-11-12] MEDS: ALPRAZolam 0.25 MG Tab PO SCH (20:48)
[2017-11-13] MEDS: Levothyroxine 88 MCG Tab PO SCH (07:19)
[2017-11-13] MEDS: Calcium Citrate/Vitamin D3 315 MG-250 Unit Tab PO SCH ×2 (08:11→21:01)
[2017-11-13] MEDS: Ferrous Sulfate 325 MG Tab PO SCH (08:11)
[2017-11-13] MEDS: FLUoxetine 10 MG Cap PO SCH (08:11)
[2017-11-13] MEDS: Clopidogrel 75 MG Tab PO SCH (08:12)
[2017-11-13] MEDS: amLODIPine 5 MG Tab PO SCH (08:13)
[2017-11-13] MEDS: atorvaSTATin 40 MG Tab PO SCH (08:13)
[2017-11-13] MEDS: Atenolol 25 MG Tab PO SCH ×2 (08:14→21:02)
[2017-11-13] MEDS: Losartan 50 MG Tab PO SCH (08:15)
[2017-11-13] MEDS: Aspirin 81 MG Tab.EC PO SCH (08:16)
[2017-11-13] MEDS: Acetaminophen 500 MG Tab PO PRN (08:28)
[2017-11-13] MEDS: Hydrochlorothiazide 25 MG Tab PO SCH (13:30)
[2017-11-13] MEDS: ALPRAZolam 0.25 MG Tab PO SCH (21:03)
[2017-11-14] MEDS: Levothyroxine 88 MCG Tab PO SCH (07:58)
[2017-11-14] MEDS: Atenolol 25 MG Tab PO SCH ×2 (08:11→21:39)
[2017-11-14] MEDS: amLODIPine 5 MG Tab PO SCH (08:12)
[2017-11-14] MEDS: Clopidogrel 75 MG Tab PO SCH (08:12)
[2017-11-14] MEDS: FLUoxetine 10 MG Cap PO SCH (08:12)
[2017-11-14] MEDS: atorvaSTATin 40 MG Tab PO SCH (08:12)
[2017-11-14] MEDS: Hydrochlorothiazide 25 MG Tab PO SCH (08:12)
[2017-11-14] MEDS: Losartan 50 MG Tab PO SCH (08:13)
[2017-11-14] MEDS: Aspirin 81 MG Tab.EC PO SCH (08:13)
[2017-11-14] MEDS: Ferrous Sulfate 325 MG Tab PO SCH (08:13)
[2017-11-14] MEDS: Calcium Citrate/Vitamin D3 315 MG-250 Unit Tab PO SCH ×2 (08:13→21:38)
[2017-11-14] MEDS: ALPRAZolam 0.25 MG Tab PO SCH (21:42)
[2017-11-15] MEDS: Levothyroxine 88 MCG Tab PO SCH (07:24)
[2017-11-15] MEDS: Calcium Citrate/Vitamin D3 315 MG-250 Unit Tab PO SCH ×2 (08:18→21:21)
[2017-11-15] MEDS: Ferrous Sulfate 325 MG Tab PO SCH (08:18)
[2017-11-15] MEDS: Atenolol 25 MG Tab PO SCH ×2 (08:19→21:21)
[2017-11-15] MEDS: amLODIPine 5 MG Tab PO SCH (08:19)
[2017-11-15] MEDS: Aspirin 81 MG Tab.EC PO SCH (08:19)
[2017-11-15] MEDS: Hydrochlorothiazide 25 MG Tab PO SCH (08:20)
[2017-11-15] MEDS: atorvaSTATin 40 MG Tab PO SCH (08:20)
[2017-11-15] MEDS: FLUoxetine 10 MG Cap PO SCH (08:20)
[2017-11-15] MEDS: Clopidogrel 75 MG Tab PO SCH (08:20)
[2017-11-15] MEDS: Losartan 50 MG Tab PO SCH (08:21)
[2017-11-15] MEDS: ALPRAZolam 0.25 MG Tab PO SCH (21:22)
[2017-11-16] MEDS: Levothyroxine 88 MCG Tab PO SCH (07:48)
[2017-11-16] MEDS: Aspirin 81 MG Tab.EC PO SCH (08:38)
[2017-11-16] MEDS: Clopidogrel 75 MG Tab PO SCH (08:38)
[2017-11-16] MEDS: atorvaSTATin 40 MG Tab PO SCH (08:39)
[2017-11-16] MEDS: Calcium Citrate/Vitamin D3 315 MG-250 Unit Tab PO SCH ×2 (08:39→21:34)
[2017-11-16] MEDS: Ferrous Sulfate 325 MG Tab PO SCH (08:39)
[2017-11-16] MEDS: Losartan 50 MG Tab PO SCH (08:40)
[2017-11-16] MEDS: FLUoxetine 10 MG Cap PO SCH (08:40)
[2017-11-16] MEDS: amLODIPine 5 MG Tab PO SCH (08:41)
[2017-11-16] MEDS: Hydrochlorothiazide 25 MG Tab PO SCH (08:42)
[2017-11-16] MEDS: Atenolol 25 MG Tab PO SCH ×2 (10:38→21:33)
--- NOTE | 2017-11-16 12:25 | PN ---
11/16/2017 PATIENT NAME: JARROD SEALS SUBJECTIVE: This is an 82-year-old female patient who had fallen and fractured her right hip. The patient was at home on the 09 of October when she had fallen. She went to [facility] in [place], [place] and had Dr. Shafer do operative repair of her right hip. The patient is in swing bed status here for rehabilitation. Today, the patient states that she feels fine. Her pain has been well controlled. Physical Therapy has been doing really well. She states that the therapist states that she is ahead of her plan of care. She has no other health concerns today. OBJECTIVE: VITAL SIGNS: Today, temperature is 98.1, pulse 61, blood pressure 145/81, respiratory rate is 18, oxygen saturation on room air is 96%. GENERAL: This is an elderly white female, in no acute distress. HEART: Tones are regular rate and rhythm. No murmurs identified. ABDOMEN: Soft, nontender, nondistended. Bowel sounds present x4. LUNGS: Sounds are clear in upper lobes, slightly diminished at bilateral bases. EXTREMITIES: Right hip seems to be healing fine. No signs of infection or drainage. LABORATORY DATA: The patient's lab work, the last time she had lab work was back on the 4th of this month. CBC showed a white count slightly low at 4.7, hemoglobin low at 9.1, otherwise unremarkable. IMPRESSION AND PLAN: 1. Right hip fracture with status post surgical repair of right hip. Plan: Continue with physical therapy. The patient is seen progressing well. Per Dr. Shafer. 2. repeat x-rays will be ordered. The patient may have oxycodone as needed for pain. She also has some Zofran, she can have for nausea if she is having some trouble. Also, some meclizine if she gets dizzy. 3. History of coronary artery disease with hypertension. Plan: Continue amlodipine 10 mg daily along with atenolol 50 mg twice a day. We will continue with aspirin 81 mg daily. She also takes losartan 100 mg daily along with HCTZ 6.25 mg daily. She also is on Plavix 75 mg daily. 4. History of hyperlipidemia. Plan: Continue with atorvastatin 40 mg daily. 5. History of iron deficiency. Plan: Continue with ferrous sulfate 325 mg daily in the morning. 6. History of depression. Plan: Continue with Prozac 20 mg daily. 7. History of hypothyroidism. Plan: Continue with levothyroxine 88 mcg daily. /[id number]/MODL
[2017-11-16] MEDS: ALPRAZolam 0.25 MG Tab PO SCH (21:34)
[2017-11-17] MEDS: Levothyroxine 88 MCG Tab PO SCH (07:46)
[2017-11-17] MEDS: Ferrous Sulfate 325 MG Tab PO SCH (08:28)
[2017-11-17] MEDS: Aspirin 81 MG Tab.EC PO SCH (08:28)
[2017-11-17] MEDS: amLODIPine 5 MG Tab PO SCH (08:29)
[2017-11-17] MEDS: atorvaSTATin 40 MG Tab PO SCH (08:30)
[2017-11-17] MEDS: Clopidogrel 75 MG Tab PO SCH (08:30)
[2017-11-17] MEDS: Atenolol 25 MG Tab PO SCH ×2 (08:31→21:27)
[2017-11-17] MEDS: Losartan 50 MG Tab PO SCH (08:32)
[2017-11-17] MEDS: Hydrochlorothiazide 25 MG Tab PO SCH (08:33)
[2017-11-17] MEDS: FLUoxetine 10 MG Cap PO SCH (08:33)
[2017-11-17] MEDS: Calcium Citrate/Vitamin D3 315 MG-250 Unit Tab PO SCH ×2 (08:37→21:15)
[2017-11-17] MEDS: ALPRAZolam 0.25 MG Tab PO SCH (21:20)
[2017-11-18] MEDS: Levothyroxine 88 MCG Tab PO SCH (06:43)
[2017-11-18] MEDS: Atenolol 25 MG Tab PO SCH ×2 (08:03→21:41)
[2017-11-18] MEDS: amLODIPine 5 MG Tab PO SCH (08:04)
[2017-11-18] MEDS: Hydrochlorothiazide 25 MG Tab PO SCH (08:04)
[2017-11-18] MEDS: FLUoxetine 10 MG Cap PO SCH (08:04)
[2017-11-18] MEDS: atorvaSTATin 40 MG Tab PO SCH (08:04)
[2017-11-18] MEDS: Clopidogrel 75 MG Tab PO SCH (08:04)
[2017-11-18] MEDS: Aspirin 81 MG Tab.EC PO SCH (08:05)
[2017-11-18] MEDS: Calcium Citrate/Vitamin D3 315 MG-250 Unit Tab PO SCH ×2 (08:05→21:40)
[2017-11-18] MEDS: Losartan 50 MG Tab PO SCH (08:05)
[2017-11-18] MEDS: Ferrous Sulfate 325 MG Tab PO SCH (08:06)
[2017-11-18] MEDS: ALPRAZolam 0.25 MG Tab PO SCH (21:45)
[2017-11-19] MEDS: Levothyroxine 88 MCG Tab PO SCH (07:45)
[2017-11-19] MEDS: Aspirin 81 MG Tab.EC PO SCH (07:46)
[2017-11-19] MEDS: Ferrous Sulfate 325 MG Tab PO SCH (07:46)
[2017-11-19] MEDS: Calcium Citrate/Vitamin D3 315 MG-250 Unit Tab PO SCH ×2 (08:00→21:20)
[2017-11-19] MEDS: Atenolol 25 MG Tab PO SCH ×2 (08:00→21:21)
[2017-11-19] MEDS: Clopidogrel 75 MG Tab PO SCH (08:00)
[2017-11-19] MEDS: atorvaSTATin 40 MG Tab PO SCH (08:00)
[2017-11-19] MEDS: FLUoxetine 10 MG Cap PO SCH (08:00)
[2017-11-19] MEDS: Hydrochlorothiazide 25 MG Tab PO SCH (08:04)
[2017-11-19] MEDS: Losartan 50 MG Tab PO SCH (08:04)
[2017-11-19] MEDS: amLODIPine 5 MG Tab PO SCH (08:05)
[2017-11-19] MEDS: ALPRAZolam 0.25 MG Tab PO SCH (21:21)
[2017-11-20] MEDS: Levothyroxine 88 MCG Tab PO SCH (07:32)
[2017-11-20] MEDS: Ferrous Sulfate 325 MG Tab PO SCH (08:11)
[2017-11-20] MEDS: Calcium Citrate/Vitamin D3 315 MG-250 Unit Tab PO SCH ×2 (08:11→21:08)
[2017-11-20] MEDS: Aspirin 81 MG Tab.EC PO SCH (08:12)
[2017-11-20] MEDS: Clopidogrel 75 MG Tab PO SCH (09:38)
[2017-11-20] MEDS: Losartan 50 MG Tab PO SCH (09:39)
[2017-11-20] MEDS: Atenolol 25 MG Tab PO SCH ×2 (09:40→21:06)
[2017-11-20] MEDS: FLUoxetine 10 MG Cap PO SCH (09:41)
[2017-11-20] MEDS: amLODIPine 5 MG Tab PO SCH (09:42)
[2017-11-20] MEDS: atorvaSTATin 40 MG Tab PO SCH (09:42)
[2017-11-20] MEDS: Hydrochlorothiazide 25 MG Tab PO SCH (09:43)
[2017-11-20] MEDS: ALPRAZolam 0.25 MG Tab PO SCH (21:06)
[2017-11-21] MEDS: Levothyroxine 88 MCG Tab PO SCH (07:39)
[2017-11-21] MEDS: Aspirin 81 MG Tab.EC PO SCH (07:40)
[2017-11-21] MEDS: Ferrous Sulfate 325 MG Tab PO SCH (07:40)
[2017-11-21] MEDS: Calcium Citrate/Vitamin D3 315 MG-250 Unit Tab PO SCH ×2 (09:24→21:08)
[2017-11-21] MEDS: Losartan 50 MG Tab PO SCH (09:25)
[2017-11-21] MEDS: Hydrochlorothiazide 25 MG Tab PO SCH (09:26)
[2017-11-21] MEDS: atorvaSTATin 40 MG Tab PO SCH (09:26)
[2017-11-21] MEDS: Clopidogrel 75 MG Tab PO SCH (09:27)
[2017-11-21] MEDS: Atenolol 25 MG Tab PO SCH ×2 (09:27→21:07)
[2017-11-21] MEDS: FLUoxetine 10 MG Cap PO SCH (09:27)
[2017-11-21] MEDS: amLODIPine 5 MG Tab PO SCH (09:27)
[2017-11-21] MEDS: ALPRAZolam 0.25 MG Tab PO SCH (21:06)
[2017-11-22] MEDS: Levothyroxine 88 MCG Tab PO SCH (07:41)
[2017-11-22] MEDS: Ferrous Sulfate 325 MG Tab PO SCH (07:41)
[2017-11-22] MEDS: Aspirin 81 MG Tab.EC PO SCH (07:41)
[2017-11-22] MEDS: Atenolol 25 MG Tab PO SCH ×2 (08:10→21:13)
[2017-11-22] MEDS: atorvaSTATin 40 MG Tab PO SCH (08:11)
[2017-11-22] MEDS: amLODIPine 5 MG Tab PO SCH (08:11)
[2017-11-22] MEDS: Clopidogrel 75 MG Tab PO SCH (08:11)
[2017-11-22] MEDS: FLUoxetine 10 MG Cap PO SCH (08:11)
[2017-11-22] MEDS: Calcium Citrate/Vitamin D3 315 MG-250 Unit Tab PO SCH ×2 (08:11→21:14)
[2017-11-22] MEDS: Losartan 50 MG Tab PO SCH (08:12)
[2017-11-22] MEDS: Hydrochlorothiazide 12.5 MG Cap PO SCH (08:13)
[2017-11-22] MEDS: ALPRAZolam 0.25 MG Tab PO SCH (21:13)
[2017-11-23] MEDS: Levothyroxine 88 MCG Tab PO SCH (07:59)
[2017-11-23] MEDS: Ferrous Sulfate 325 MG Tab PO SCH (07:59)
[2017-11-23] MEDS: Aspirin 81 MG Tab.EC PO SCH (08:00)
[2017-11-23] MEDS: Clopidogrel 75 MG Tab PO SCH (08:00)
[2017-11-23] MEDS: atorvaSTATin 40 MG Tab PO SCH (08:00)
[2017-11-23] MEDS: FLUoxetine 10 MG Cap PO SCH (08:01)
[2017-11-23] MEDS: amLODIPine 5 MG Tab PO SCH (08:01)
[2017-11-23] MEDS: Losartan 50 MG Tab PO SCH (08:02)
[2017-11-23] MEDS: Calcium Citrate/Vitamin D3 315 MG-250 Unit Tab PO SCH ×2 (08:03→21:09)
[2017-11-23] MEDS: Hydrochlorothiazide 12.5 MG Cap PO SCH (08:04)
[2017-11-23] MEDS: Atenolol 25 MG Tab PO SCH ×2 (08:07→21:09)
[2017-11-23] MEDS: ALPRAZolam 0.25 MG Tab PO SCH (21:09)
[2017-11-24 06:33] VITALS: BP 164/85
[2017-11-24] MEDS: Levothyroxine 88 MCG Tab PO SCH (07:33)
[2017-11-24] MEDS: Ferrous Sulfate 325 MG Tab PO SCH (08:02)
[2017-11-24] MEDS: Calcium Citrate/Vitamin D3 315 MG-250 Unit Tab PO SCH (08:02)
[2017-11-24] MEDS: FLUoxetine 10 MG Cap PO SCH (08:03)
[2017-11-24] MEDS: Clopidogrel 75 MG Tab PO SCH (08:03)
[2017-11-24] MEDS: Atenolol 25 MG Tab PO SCH (08:04)
[2017-11-24] MEDS: Hydrochlorothiazide 12.5 MG Cap PO SCH (08:04)
[2017-11-24] MEDS: Aspirin 81 MG Tab.EC PO SCH (08:04)
[2017-11-24] MEDS: atorvaSTATin 40 MG Tab PO SCH (08:04)
[2017-11-24] MEDS: Losartan 50 MG Tab PO SCH (08:05)
[2017-11-24] MEDS: amLODIPine 5 MG Tab PO SCH (08:06)
--- NOTE | 2017-11-28 10:13 | PCM.DCSUM1 ---
Discharge Summary - Discharge Data Discharge Date: 11/24/17 Discharge Disposition: Home, Self-Care 01 Condition: Good - Patient Summary/Data Consults: Consultations 10/13/17 11:28 Consult to [employer] [CONS] Routine PT Evaluation and Treatment [CONS] Routine - Patient Instructions Diet: Usual Diet as Tolerated Activity: As Tolerated, Cough & Deep Breathe Driving: Do Not Drive Showering/Bathing: May Shower Notify Provider of: Fever, Increased Pain, Nausea and/or Vomiting - Discharge Plan Prescriptions/Med Rec: Hydrochlorothiazide 12.5 mg PO BID@0800,1600 #60 cap Losartan [Cozaar] 100 mg PO DAILY #60 tablet Home Medications: Home Meds Atenolol 50 mg PO BID 07/17/14 [History] Meclizine HCl 25 mg PO BID PRN 07/17/14 [History] Clopidogrel [Plavix] 75 mg PO DAILY 10/09/17 [History] Levothyroxine [Synthroid] 88 mcg PO ACBREAKFAST 10/09/17 [History] atorvaSTATin [Lipitor] 40 mg PO DAILY 10/09/17 [History] ALPRAZolam [Xanax] 0.5 mg PO 2100 PRN 10/13/17 [History] Acetaminophen [Acetaminophen Extra Strength] 1,000 mg PO TID PRN 10/13/17 [ History] FLUoxetine HCl [Prozac] 20 mg PO DAILY 10/13/17 [History] hydrALAZINE [Apresoline] 100 mg PO TIDMEALS 10/13/17 [History] oxyCODONE 5 mg PO Q4H PRN 10/13/17 [History] Hydrochlorothiazide 12.5 mg PO BID@0800,1600 #60 cap 11/24/17 [Rx] Losartan [Cozaar] 100 mg PO DAILY #60 tablet 11/24/17 [Rx] amLODIPine Besylate [Amlodipine Besylate] 10 mg PO DAILY #30 11/24/17 [Rx] Referrals: Bryson Donato NP [Nurse Practitioner] - (anytime next week. ) - Discharge Summary/Plan Comment DC Time >30 min.: Yes Discharge Summary/Plan Comment: Brief Hx. 82 year old female who fell at home on 10/09/17 and sustained a right hip fracture requiring operative repair at [place] in [place], [place]. She was admitted in SNF at [facility] for PT and rehabilitation. final DX: S/P closed right hip fragility fracture s/p operative repair. Complications: Mild oozong blood slight on/off without dishisence, compression bandage and positioning alleviated. Healed up well. Did have some slight elevated HTN with improvement on medication adjustment. F/u recommendation: She will need Forteo initiated in the outpatient setting for her fragility fracture. - General Info Functional Status: Reports: Pain Controlled - Review of Systems General: Reports: No Symptoms HEENT: Reports: No Symptoms Pulmonary: Reports: No Symptoms Cardiovascular: Reports: No Symptoms Musculoskeletal: Reports: No Symptoms Skin: Reports: No Symptoms - Patient Data Vitals - Most Recent: Last Vital Signs Temp 98.5 F 11/24/17 06:33 Pulse 67 11/24/17 08:04 Resp 20 11/24/17 06:33 BP 164/85 H 11/24/17 08:06 Pulse Ox 97 11/24/17 06:33 Weight - Most Recent: 150 lb 9 oz Med Orders - Current: Current Medications Discontinued Medications Acetaminophen (Tylenol Extra Strength) 1,000 mg PO TID PRN PRN Reason: Pain Last Admin: 11/13/17 08:28 Dose: 1,000 mg Alprazolam (Xanax) 0.5 mg PO BEDTIME PRN PRN Reason: ANXIETY Last Admin: 10/14/17 20:56 Dose: 0.5 mg Alprazolam (Xanax) 0.5 mg PO BEDTIME [facility] Last Admin: 11/23/17 21:09 Dose: 0.5 mg Amlodipine Besylate (Norvasc) 5 mg PO DAILY [facility] Last Admin: 11/01/17 08:16 Dose: 5 mg Amlodipine Besylate (Norvasc) 10 mg PO DAILY [facility] Last Admin: 11/24/17 08:06 Dose: 10 mg Amlodipine Besylate (Norvasc) Confirm Administered Dose 5 mg .ROUTE .STK-MED ONE Stop: 11/02/17 10:43 Last Admin: 11/02/17 16:25 Dose: Not Given Apixaban (Eliquis) 2.5 mg PO BID [facility] Stop: 10/23/17 21:01 Last Admin: 10/23/17 21:30 Dose: 2.5 mg Aspirin (Halfprin) 81 mg PO WITHBREAKFAST [facility] Last Admin: 11/24/17 08:04 Dose: 81 mg Atenolol (Tenormin) 50 mg PO BID [facility] Last Admin: 11/24/17 08:04 Dose: 50 mg Atorvastatin Calcium (Lipitor) 40 mg PO DAILY [facility] Last Admin: 11/24/17 08:04 Dose: 40 mg Calcium Citrate (Calcium Citrate + D) 2 tab PO BID [facility] Last Admin: 11/24/17 08:02 Dose: 2 tab Clopidogrel Bisulfate (Plavix) 75 mg PO DAILY [facility] Last Admin: 10/14/17 10:08 Dose: Not Given Clopidogrel Bisulfate (Plavix) 75 mg PO DAILY [facility] Last Admin: 11/24/17 08:03 Dose: 75 mg Ferrous Sulfate (Ferrous Sulfate) 325 mg PO WITHBREAKFAST [facility] Last Admin: 11/24/17 08:02 Dose: 325 mg Fluoxetine HCl (Prozac) 20 mg PO DAILY [facility] Last Admin: 10/14/17 01:13 Dose: Not Given Fluoxetine HCl (Prozac) 20 mg PO DAILY [facility] Last Admin: 11/24/17 08:03 Dose: 20 mg Hydralazine HCl (Apresoline) 100 mg PO TIDMEALS [facility] Last Admin: 10/19/17 08:23 Dose: 100 mg Hydralazine HCl (Apresoline) 50 mg PO TIDMEALS [facility] Stop: 10/21/17 18:00 Last Admin: 10/21/17 18:18 Dose: 50 mg Hydralazine HCl (Apresoline) 25 mg PO TIDMEALS [facility] Stop: 10/22/17 18:01 Last Admin: 10/22/17 18:46 Dose: 25 mg Hydrochlorothiazide (Hydrochlorothiazide) 6.25 mg PO DAILY [facility] Last Admin: 11/21/17 09:26 Dose: 6.25 mg Hydrochlorothiazide (Hydrochlorothiazide) 12.5 mg PO DAILY [facility] Last Admin: 11/24/17 08:04 Dose: 12.5 mg Levothyroxine Sodium (Synthroid) 88 mcg PO ACBREAKFAST [facility] Last Admin: 11/24/17 07:33 Dose: 88 mcg Levothyroxine Sodium (Synthroid) Confirm Administered Dose 88 mcg .ROUTE .STK- MED ONE Stop: 10/24/17 07:39 Last Admin: 10/24/17 07:49 Dose: Not Given Losartan Potassium (Cozaar) 50 mg PO DAILY [facility] Last Admin: 11/06/17 08:01 Dose: 50 mg Losartan Potassium (Cozaar) 100 mg PO DAILY [facility] Last Admin: 11/09/17 08:18 Dose: 100 mg Losartan Potassium (Cozaar) 50 mg PO ONETIME ONE Stop: 11/06/17 09:01 Last Admin: 11/06/17 10:38 Dose: 50 mg Losartan Potassium (Cozaar) 100 mg PO DAILY [facility] Last Admin: 11/24/17 08:05 Dose: 100 mg Magnesium Hydroxide (Milk Of Magnesia) 30 ml PO DAILY PRN PRN Reason: Constipation Last Admin: 11/03/17 12:00 Dose: 30 ml Meclizine HCl (Antivert) 25 mg PO BID PRN PRN Reason: Dizziness Ondansetron HCl (Zofran Odt) 4 mg PO Q6H PRN PRN Reason: Nausea/Vomiting Last Admin: 10/13/17 16:51 Dose: 4 mg Oxycodone HCl (Oxycodone) 5 mg PO Q4H PRN PRN Reason: Pain (severe 7-10) Last Admin: 11/02/17 10:12 Dose: 5 mg Polyethylene Glycol (Miralax) 17 gm PO BEDTIME PRN PRN Reason: Constipation Ramelteon (Rozerem) 8 mg PO BEDTIME PRN PRN Reason: Delirium prophylaxis Last Admin: 10/25/17 00:49 Dose: 8 mg Senna/Docusate Sodium (Senna Plus) 1 tab PO BEDTIME [facility] Last Admin: 10/16/17 21:15 Dose: 1 tab Senna/Docusate Sodium (Senna Plus) 1 tab PO BID [facility] Last Admin: 11/24/17 08:03 Dose: 1 tab - Exam Quality Assessment: Denies: Supplemental Oxygen General: Reports: Alert, Oriented Lungs: Reports: Clear to Auscultation, Normal Respiratory Effort Cardiovascular: Reports: Regular Rate, Regular Rhythm Extremities: No Pedal Edema Skin: Reports: Warm, Dry, Intact Wound/Incisions: Reports: Healing Well Neurological: Reports: No New Focal Deficit Psy/Mental Status: Reports: Alert, Normal Affect, Normal Mood
== END 2017-11-24 10:14 | disposition home or self-care (01) | DRG 560 ==
LOC: KA.MS 12:45
PROVIDERS: ADMIT Nurse Practitioner Family; ATTEND Family Medicine
DX: S72.001D Fracture of unspecified part of neck of right femur, subsequent encounter for closed fracture with routine healing (principal); E46 Unspecified protein-calorie malnutrition; N17.9 Acute kidney failure, unspecified; W19.XXXD Unspecified fall, subsequent encounter; R01.1 Cardiac murmur, unspecified; F41.9 Anxiety disorder, unspecified; E03.9 Hypothyroidism, unspecified; M85.80 Other specified disorders of bone density and structure, unspecified site; D50.0 Iron deficiency anemia secondary to blood loss (chronic); K59.00 Constipation, unspecified; I65.29 Occlusion and stenosis of unspecified carotid artery; I12.9 Hypertensive chronic kidney disease with stage 1 through stage 4 chronic kidney disease, or unspecified chronic kidney disease; N18.3 Chronic kidney disease, stage 3 (moderate); R53.81 Other malaise; M81.0 Age-related osteoporosis without current pathological fracture; G47.00 Insomnia, unspecified; R42 Dizziness and giddiness; Z86.73 Personal history of transient ischemic attack (TIA), and cerebral infarction without residual deficits; Z79.899 Other long term (current) drug therapy; Z87.891 Personal history of nicotine dependence
CPT/HCPCS: 36415; 80048; 80053; 81001; 85025; 85027; 87070; 87086; 87205; 97110-GP; 97112-GP; 97116-GP; 97150-GP; 97161-GP; 97537-GP; A9270-GY